=== PATIENT | female | born 1940 | race Hispanic/Latino ===

== ENCOUNTER 2017-08-10 18:48 | Inpatient (IN) | payer BC, MEDICARE ==
[2017-08-10 19:00] VITALS: BMI 34.0
--- NOTE | 2017-08-10 19:55 | ED PDOC ---
Arrival/HPI - General Chief Complaint: Weakness/Neurological Deficit Time Seen by Provider: 08/10/17 18:50 Historian: Patient - History of Present Illness Narrative History of Present Illness (Text): 08/10/17 18:50 77 year old female, whose past medical history includes breast CA, is brought in by [facility] and presents to the emergency department complaining of back pain. Patient reports she has spinal stenosis and was sent by PMD for back pain. Patient states she fell at home and had difficulty ambulating afterwards. Denies of any fever, urinary output changes, numbness, or any other complaints. PMD: Dr. Ray Grady Past Medical History - Provider Review Nursing Documentation Reviewed: Yes - Infectious Disease Hx of Infectious Diseases: None - Cardiac Hx Cardiac Disorders: No Hx Pacemaker: No - Pulmonary Hx Respiratory Disorders: No - Neurological Hx Neurological Disorder: No Hx Paralysis: No - HEENT Hx HEENT Disorder: Yes Other/Comment: glasses - Renal Hx Renal Disorder: No - Endocrine/Metabolic Hx Endocrine Disorders: No - Hematological/Oncological Hx Blood Disorders: Yes Hx Blood Transfusions: Yes (16 YRS AGO) Hx Blood Transfusion Reaction: No Hx Cancer: Yes (L breast removed with lymph) - Integumentary Hx Dermatological Disorder: No - Musculoskeletal/Rheumatological Hx Musculoskeletal Disorders: Yes (SPINAL STENOSIS) - Gastrointestinal Hx Gastrointestinal Disorders: No - Psychiatric Hx Emotional Abuse: No Hx Physical Abuse: No Hx Substance Use: No - Surgical History Hx Cholecystectomy: Yes Other/Comment: L breast removed with lymph - Anesthesia Hx Anesthesia: Yes Hx Anesthesia Reactions: Yes (PALPATATIONS ;HALLUCINATIONS;FEELINGS OF SEVERE ANGER) Hx Malignant Hyperthermia: No - Suicidal Assessment Feels Threatened In Home Enviroment: No Family/Social History - Physician Review Nursing Documentation Reviewed: Yes Family/Social History: No Known Family HX Smoking Status: Never Smoked Hx Alcohol Use: No Hx Substance Use: No Allergies/Home Meds Allergies/Adverse Reactions: Allergies codeine Allergy (Verified 08/10/17 19:06) ANGIOEDEMA Home Medications: Home Meds Medication Instructions Recorded Confirmed Omeprazole 20 mg PO QPM 07/28/15 08/10/17 Paroxetine HCl [Paroxetine] 20 mg PO HS 07/28/15 08/10/17 Raloxifene [Evista] 60 mg PO DAILY 07/28/15 08/10/17 amLODIPine [Norvasc] 5 mg PO QAM 07/28/15 08/10/17 Omeprazole Magnesium [Prilosec] 1 tab PO DAILY 08/10/17 08/10/17 Review of Systems - Physician Review All systems were reviewed & negative as marked: Yes - Review of Systems Constitutional: absent: Fevers Genitourinary Female: absent: Urine Output Changes Musculoskeletal: Back Pain (secondary to spinal stenosis) Neurological: absent: Other (no numbness) Physical Exam Vital Signs Reviewed: Yes Vital Signs Temp Pulse Resp BP Pulse Ox 08/10/17 20:16 85 20 118/70 97 08/10/17 19:03 98.6 F 90 20 181/63 H 96 Temperature: Afebrile Blood Pressure: Hypertensive Pulse: Regular Respiratory Rate: Normal Appearance: Positive for: Well-Appearing Pain Distress: None Mental Status: Positive for: Alert and Oriented X 3 - Systems Exam Head: Present: Atraumatic, Normocephalic Pupils: Present: PERRL Extroacular Muscles: Present: EOMI Conjunctiva: Present: Normal Mouth: Present: Moist Mucous Membranes Neck: Present: Normal Range of Motion Respiratory/Chest: Present: Clear to Auscultation, Good Air Exchange. No: Respiratory Distress, Accessory Muscle Use Cardiovascular: Present: Regular Rate and Rhythm, Normal S1, S2. No: Murmurs Abdomen: Present: Normal Bowel Sounds. No: Tenderness, Distention, Peritoneal Signs Back: Present: Paraspinal Tenderness (lumbar paraspinal tenderness). No: Midline Tenderness Upper Extremity: Present: Normal Inspection. No: Cyanosis, Edema Lower Extremity: Present: Normal Inspection. No: Edema Neurological: Present: GCS=15, CN II-XII Intact, Speech Normal Skin: Present: Warm, Dry, Normal Color. No: Rashes Psychiatric: Present: Alert, Oriented x 3, Normal Insight, Normal Concentration Medical Decision Making ED Course and Treatment: 08/10/17 18:55 Impression: 77 year old female with back pain secondary to spinal stenosis. Physical exam shows lumbar paraspinal tenderness, no midline tenderness. Plan: -- Lumbar Spinal MRI -- Labs -- Urinalysis -- Toradol -- Reassess and disposition Progress Notes: 08/10/2017 20:59 Limbar Spinal MRI FINDINGS: Artifacts: Motion artifact limits this study. Vertebrae: A transitional vertebral body is identified at the lumbosacral junction. There is a transitional L5 vertebral body, when correlated with the previous CT. There is grade I anterolisthesis of L4 on L5. The lumbar vertebral bodies are normal in height, without abnormal subluxation. Marrow: T1 hyperintense hemangiomas are identified within the T12 and L1 vertebral bodies. Spinal cord: The distal end of the conus medullaris ends at T12-L1, normal in position. Soft tissues: There is nonspecific soft tissue swelling posterior to the lower thoracic and lumbar spine. Kidneys and ureters: A few right renal cysts are identified. One of these cysts measures 2.0 x 1.6 cm. DISCS/SPINAL CANAL/NEURAL FORAMINA: Degenerative disc disease is noted from L1- 2 through L4-5, as well as additional visualized lower thoracic levels, with a decrease in the T2 signal intensity of the discs as well as disc bulge/osteophyte complexes. T11-T12: There is mild disc bulging at T11-12, without thecal sac compression. L1-L2: There is a broad-based disc bulge/protrusion with minimal to mild narrowing of the thecal sac. Mild right neural foraminal narrowing is identified. There is bilateral facet arthropathy. L2-L3: There is a broad-based disc bulge with mild narrowing of the thecal sac. Mild bilateral neural foramina is identified. L3-L4: There is a broad-based disc bulge with mild narrowing of the thecal sac. There is bilateral facet arthropathy with hypertrophy of the ligamentum flavum. Mild bilateral neural foraminal narrowing is identified. L4-L5: There is bilateral facet arthropathy. Mild narrowing of the thecal sac is identified. The neural foramina are patent bilaterally. L5-S1: There is bilateral facet arthropathy. There is no significant narrowing of the thecal sac or neural foramina. IMPRESSION: 1. A transitional vertebral body is identified at the lumbosacral junction. There is a transitional L5 vertebral body, when correlated with the previous CT. 2. There is grade I anterolisthesis of L4 on L5. 3. Degenerative changes are noted from L1-2 through L4-5, as well as additional visualized lower thoracic levels, as described above. 4. L1-2, there is a broad-based disc bulge/protrusion with minimal to mild narrowing of the thecal sac. 5. Mild narrowing of the thecal sac is identified from L2-3 through L4-5. 6. Neural foraminal narrowing is visualized from L1-2 through L3-4, as detailed above. 7. T1 hyperintense hemangiomas are identified within the T12 and L1 vertebral bodies. 8. Additional findings described above. Dictator: Lazaro Brown MD - Lab Interpretations Lab Results: 08/10/17 20:00 08/10/17 20:00 Lab Results 08/10/17 20:00: Sodium 141, Potassium 3.2 L, Chloride 101, Carbon Dioxide 31, Anion Gap 12, BUN 15, Creatinine 0.7, Est GFR ( Amer) > 60, Est GFR (Non- Af Amer) > 60, Random Glucose 106, Calcium 8.9, Total Bilirubin 0.3, AST 31, ALT 27, Alkaline Phosphatase 87, Total Protein 6.7, Albumin 3.4, Globulin 3.2, Albumin/Globulin Ratio 1.1 08/10/17 20:00: PT 11.0, INR 1.02, APTT 26.9 08/10/17 20:00: WBC 7.2, RBC 3.86, Hgb 9.9 L, Hct 32.1 L, MCV 83.2, MCH 25.6, MCHC 30.8 L, RDW 15.0 H, Plt Count 345, MPV 8.8, Gran % 73.8 H, Lymph % (Auto) 14.0 L, Chaves % (Auto) 11.2 H, Eos % (Auto) 1.0 L, Baso % (Auto) 0.0, Gran # 5.34 , Lymph # 1.0 L, Chaves # 0.8 H, Eos # 0.1, Baso # 0.00 I have reviewed the lab results: Yes - RAD Interpretation Radiology Orders: 08/10/17 18:53 SPINAL CANAL LUMBAR W/O CONT [MRI] Stat - Medication Orders Current Medication Orders: Acetaminophen (Tylenol 325mg Tab) 650 mg PO Q6H PRN PRN Reason: Fever >100.4 F Amlodipine Besylate (Norvasc) 5 mg PO DAILY NATHEN Aspirin (Ecotrin) 81 mg PO DAILY NATHEN Gabapentin (Neurontin) 100 mg PO TID NATHEN PRN Reason: Protocol Ibuprofen (Motrin Tab) 400 mg PO BID NATHEN Pantoprazole Sodium (Protonix Ec Tab) 40 mg PO ACB NATHEN Paroxetine HCl (Paxil) 10 mg PO DAILY NATHEN Prednisone (Prednisone Tab) 10 mg PO TID NATHEN Stop: 08/13/17 23:00 Tramadol HCl (Ultram) 50 mg PO TID PRN PRN Reason: Pain, moderate (4-7) Discontinued Medications Acetaminophen (Tylenol 325mg Tab) 650 mg PO Q6H PRN PRN Reason: Fever >100.5 F Ketorolac Tromethamine (Toradol) 30 mg IVP STAT STA Stop: 08/10/17 18:58 Last Admin: 08/10/17 20:13 Dose: 30 mg MAR Pain Assessment Document 08/10/17 20:13 EKEOO (Rec: 08/10/17 20:13 EKEOO [id number]) Pain Reassessment Is this a pain reassessment? No Sleep Is patient sleeping during reassessment? No Presence of Pain Presence of Pain Yes Location Pain Location Body Site Knee Description Description Constant IVP Administration Document 08/10/17 20:13 EKEOO (Rec: 08/10/17 20:13 EKEOO [id number]) Charges for Administration # of IVP Administrations 1 Potassium Chloride (K-Dur 20 Meq Er Tab) 40 meq PO STAT STA Stop: 08/10/17 20:29 Last Admin: 08/11/17 00:08 Dose: 40 meq - Scribe Statement The provider has reviewed the documentation as recorded by the Beatris Henriquez Provider Scribe Attestation: All medical record entries made by the Scribe were at my direction and personally dictated by me. I have reviewed the chart and agree that the record accurately reflects my personal performance of the history, physical exam, medical decision making, and the department course for this patient. I have also personally directed, reviewed, and agree with the discharge instructions and disposition. Disposition/Present on Arrival - Present on Arrival Any Indicators Present on Arrival: No History of DVT/PE: No History of Uncontrolled Diabetes: No Urinary Catheter: No History of Decub. Ulcer: No History Surgical Site Infection Following: None - Disposition Have Diagnosis and Disposition been Completed?: Yes Diagnosis: Weakness Disposition: HOSPITALIZED Disposition Time: 07:00 Condition: STABLE
[2017-08-10 20:17] LABS: EOS # 0.1 (0.0-0.7); GRAN # 5.34 (1.4-6.5); GRAN % 73.8 % (50.0-68.0); HEMATOCRIT 32.1 % (36.0-48.0); MEAN CELL VOLUME 83.2 fl (80.0-105.0); MEAN CORPUSCULAR HEMOGLOBIN 25.6 pg (25.0-35.0); MEAN CORPUSCULAR HGB CONC 30.8 g/dl (31.0-37.0); MEAN PLATELET VOLUME 8.8 fl (7.0-11.0); MONO # 0.8 (0.1-0.6); MONO % 11.2 % (1.0-6.0); WHITE BLOOD COUNT 7.2 10^3/ul (4.5-11.0)
[2017-08-10 20:26] LABS: ALB/GLOB RATIO 1.1 (1.1-1.8); ALKALINE PHOSPHATASE 87 U/L (38-126); ALT/SGPT 27 U/L (7-56); AST/SGOT 31 U/L (14-36); BILIRUBIN,TOTAL 0.3 mg/dL (0.2-1.3); BLOOD UREA NITROGEN 15 mg/dL (7-21); CALCIUM 8.9 mg/dL (8.4-10.5); CARBON DIOXIDE 31 mmol/L (21-33); CHLORIDE 101 mmol/L (98-107); GFR AFRICAN-AMERICAN > 60; GLUCOSE,RANDOM 106 mg/dL (70-110); POTASSIUM 3.2 mmol/L (3.6-5.0); SODIUM 141 mmol/L (132-148); TOTAL PROTEIN 6.7 g/dL (5.8-8.3)
[2017-08-10] MEDS ORDERED: Potassium Chloride 20 mEq ER Tab PO STA (20:28)
[2017-08-10 20:37] LABS: INR 1.02 (0.93-1.08); PARTIAL THROMBOPLASTIN TIME 26.9 Seconds (23.7-30.8)
--- NOTE | 2017-08-10 20:59 | MRI ---
EXAM: MR Lumbar Spine Without Intravenous Contrast EXAM DATE/TIME: 08/10/2017 6:53 PM CLINICAL HISTORY: The patient age is 77 years old and is female; Pain; Other: Bilateral leg pain, but more on the left; Additional info: Low back pain Facility exam id and description: Mri spls spinal canal lumbar w/o cont TECHNIQUE: Magnetic resonance images of the lumbar spine without intravenous contrast in multiple planes. COMPARISON: No relevant prior studies available. FINDINGS: Artifacts: Motion artifact limits this study. Vertebrae: A transitional vertebral body is identified at the lumbosacral junction. There is a transitional L5 vertebral body, when correlated with the previous CT. There is grade I anterolisthesis of L4 on L5. The lumbar vertebral bodies are normal in height, without abnormal subluxation. Marrow: T1 hyperintense hemangiomas are identified within the T12 and L1 vertebral bodies. Spinal cord: The distal end of the conus medullaris ends at T12-L1, normal in position. Soft tissues: There is nonspecific soft tissue swelling posterior to the lower thoracic and lumbar spine. Kidneys and ureters: A few right renal cysts are identified. One of these cysts measures 2.0 x 1.6 cm. DISCS/SPINAL CANAL/NEURAL FORAMINA: Degenerative disc disease is noted from L1-2 through L4-5, as well as additional visualized lower thoracic levels, with a decrease in the T2 signal intensity of the discs as well as disc bulge/osteophyte complexes. T11-T12: There is mild disc bulging at T11-12, without thecal sac compression. L1-L2: There is a broad-based disc bulge/protrusion with minimal to mild narrowing of the thecal sac. Mild right neural foraminal narrowing is identified. There is bilateral facet arthropathy. L2-L3: There is a broad-based disc bulge with mild narrowing of the thecal sac. Mild bilateral neural foramina is identified. L3-L4: There is a broad-based disc bulge with mild narrowing of the thecal sac. There is bilateral facet arthropathy with hypertrophy of the ligamentum flavum. Mild bilateral neural foraminal narrowing is identified. L4-L5: There is bilateral facet arthropathy. Mild narrowing of the thecal sac is identified. The neural foramina are patent bilaterally. L5-S1: There is bilateral facet arthropathy. There is no significant narrowing of the thecal sac or neural foramina. IMPRESSION: 1. A transitional vertebral body is identified at the lumbosacral junction. There is a transitional L5 vertebral body, when correlated with the previous CT. 2. There is grade I anterolisthesis of L4 on L5. 3. Degenerative changes are noted from L1-2 through L4-5, as well as additional visualized lower thoracic levels, as described above. 4. L1-2, there is a broad-based disc bulge/protrusion with minimal to mild narrowing of the thecal sac. 5. Mild narrowing of the thecal sac is identified from L2-3 through L4-5. 6. Neural foraminal narrowing is visualized from L1-2 through L3-4, as detailed above. 7. T1 hyperintense hemangiomas are identified within the T12 and L1 vertebral bodies. 8. Additional findings described above.
[2017-08-11 02:10] LABS: URINE BILIRUBIN NEGATIVE (NEGATIVE); URINE BLOOD MODERATE (NEGATIVE); URINE GLUCOSE (UA) NEGATIVE (NEGATIVE); URINE KETONE NEGATIVE (NEGATIVE); URINE LEUKOCYTE ESTERASE LARGE Leu/uL (NEGATIVE); URINE PROTEIN TRACE mg/dL (<30 mg/dL); URINE UROBILINOGEN 0.2 E.U./dL (<1 E.U./dL)
[2017-08-11 02:13] LABS: URINE APPEARANCE CLOUDY (CLEAR); URINE COLOR YELLOW (YELLOW)
[2017-08-11 02:30] LABS: URINE BACTERIA MANY (NEG); URINE WBC 15 - 20 /hpf (0-6)
--- NOTE | 2017-08-11 10:27 | CP.PCM.CON ---
<Merari Rodriguez - Last Filed: 08/11/17 10:34> History of Present Illness - History of Present Illness History of Present Illness: Neurology Consult Note for Radha Adan PGY2 Reason for consult: Back pain This is a 77Y F with PMH spinal stenosis, lumbar disc hernation, Breast cancer s /p L mastectomy, HTN, GERD, Depression who came to ED for increasing back pain for the past couple weeks. She has been having trouble getting out of the chair. When she gets out of the chair she has pain in her L leg from below her knee to her foot. She denies the feeling of numbness/tingling, but has been feeling weak and has not gotten up much recently. She denies having any trauma, numbness/tingling, loss of bowel/bladder incontinence, fever/chills, CP, SOB, n/ v/d. She only uses Advil for the pain without any relief. MRI of the lumbar spine was done which does show L5 disc herniation and spinal stenosis in L1-L4 but no acute changes. PMH: spinal stenosis, lumbar disc hernation, Breast cancer s/p L mastectomy, HTN , GERD, Depression PSH: L mastectomy, cholecystectomy Home meds: as per MAR All: Codeine (makes her altered) SH: Denies EtOH, drug or tobacco use Review of Systems - Review of Systems All systems: reviewed and no additional remarkable complaints except Review of Systems: + back pain, leg pain, weakness Past Patient History - Infectious Disease Hx of Infectious Diseases: None - Past Social History Smoking Status: Never Smoked Alcohol: None Drugs: Denies - CARDIAC Hx Cardiac Disorders: No Hx Hypertension: Yes Hx Pacemaker: No - PULMONARY Hx Respiratory Disorders: No - NEUROLOGICAL Hx Neurological Disorder: No - HEENT Hx HEENT Problems: Yes Other/Comment: glasses - RENAL Hx Chronic Kidney Disease: No - ENDOCRINE/METABOLIC Hx Endocrine Disorders: No - HEMATOLOGICAL/ONCOLOGICAL Hx Blood Disorders: Yes Hx Cancer: Yes (L breast removed with lymph) - INTEGUMENTARY Hx Dermatological Problems: No - MUSCULOSKELETAL/RHEUMATOLOGICAL Hx Musculoskeletal Disorders: Yes (SPINAL STENOSIS) Hx Arthritis: Yes Hx Falls: Yes - GASTROINTESTINAL Hx Gastrointestinal Disorders: No - PSYCHIATRIC Hx Anxiety: Yes Hx Depression: Yes Hx Emotional Abuse: No Hx Physical Abuse: No - SURGICAL HISTORY Hx Cholecystectomy: Yes Other/Comment: L breast removed with lymph with reconstruction - ANESTHESIA Hx Anesthesia: Yes Hx Anesthesia Reactions: Yes (PALPATATIONS ;HALLUCINATIONS;FEELINGS OF SEVERE ANGER) Hx Malignant Hyperthermia: No Meds Allergies/Adverse Reactions: Allergies Allergy/AdvReac Type Severity Reaction Status Date / Time codeine Allergy ANGIOEDEMA Verified 08/10/17 19:06 - Medications Medications: Current Medications Acetaminophen (Tylenol 325mg Tab) 650 mg PO Q6H PRN PRN Reason: Fever >100.5 F Gabapentin (Neurontin) 100 mg PO TID NATHEN PRN Reason: Protocol Physical Exam - Constitutional Appears: No Acute Distress - Head Exam Head Exam: ATRAUMATIC, NORMAL INSPECTION, NORMOCEPHALIC - Eye Exam Eye Exam: Normal appearance, PERRL Pupil Exam: NORMAL ACCOMODATION, PERRL - ENT Exam ENT Exam: Mucous Membranes Moist - Respiratory Exam Respiratory Exam: Clear to Auscultation Bilateral, NORMAL BREATHING PATTERN. absent: Rales, Rhonchi, Wheezes - Cardiovascular Exam Cardiovascular Exam: REGULAR RHYTHM, +S1, +S2. absent: Gallop, Rubs, Systolic Murmur - GI/Abdominal Exam GI & Abdominal Exam: Normal Bowel Sounds, Soft. absent: Mass, Rebound, Rigid, Tenderness - Extremities Exam Extremities exam: Positive for: normal inspection. Negative for: calf tenderness, pedal edema - Neurological Exam Neurological exam: Alert, CN II-XII Intact, Oriented x3 Additional comments: No motor/sensory deficit noted - Psychiatric Exam Psychiatric exam: Normal Affect, Normal Mood - Skin Skin Exam: Dry, Normal Color, Warm Results - Vital Signs Recent Vital Signs: Last Vital Signs Temp 97.6 F 08/11/17 07:30 Pulse 85 08/11/17 07:30 Resp 20 08/11/17 07:30 BP 151/77 H 08/11/17 07:30 Pulse Ox 97 08/11/17 07:30 - Labs Result Diagrams: 08/10/17 20:00 08/10/17 20:00 Labs: Laboratory Results - last 24 hr 08/11/17 01:50 Urine Color Yellow Urine Appearance Cloudy Urine pH 6.0 Ur Specific Otis 1.015 Urine Protein Trace H Urine Glucose (UA) Negative Urine Ketones Negative Urine Blood Moderate H Urine Nitrate Positive H Urine Bilirubin Negative Urine Urobilinogen 0.2 Ur Leukocyte Esterase Large H Urine RBC 1 - 3 Urine WBC 15 - 20 Ur Epithelial Cells 1 - 3 Urine Bacteria Many Assessment & Plan - Assessment and Plan (Free Text) Assessment: This is a 77Y F with PMH spinal stenosis, lumbar disc hernation, Breast cancer s /p L mastectomy, HTN, GERD, Depression who came to ED for increasing back pain for the past couple weeks. MRI of the lumbar spine was done which does show L5 disc herniation and spinal stenosis in L1-L4 but no acute changes. Back pain is chronic in nature without radiculopathy. Plan: - Start Neurontin 100mg TID - Will obtain venous duplex U/S to rule out DVT from inactivity and L lower leg pain - Upon d/c patient can be d/c with medrol dose pack - Physical therapy - Recommend patient follow up with Dr. Phelps as outpatient for EMG studies No further neurological workup indicated at this time. Thank you for this consultation. Will sign off. Please re-consult if needed. Case seen, discussed and reviewed with attending, Dr. Phelps. Radha Rodriguez PGY2 - Date & Time Date: 08/11/17 Time: 10:33 <Marcel Phelps - Last Filed: 08/11/17 13:14> Meds - Medications Medications: Current Medications Acetaminophen (Tylenol 325mg Tab) 650 mg PO Q6H PRN PRN Reason: Fever >100.4 F Amlodipine Besylate (Norvasc) 5 mg PO DAILY [facility] Last Admin: 08/11/17 11:32 Dose: 5 mg Aspirin (Ecotrin) 81 mg PO DAILY [facility] Last Admin: 08/11/17 11:43 Dose: 81 mg Gabapentin (Neurontin) 100 mg PO TID [facility] PRN Reason: Protocol Last Admin: 08/11/17 11:38 Dose: 100 mg Ibuprofen (Motrin Tab) 400 mg PO BID [facility] Last Admin: 08/11/17 11:33 Dose: 400 mg Pantoprazole Sodium (Protonix Ec Tab) 40 mg PO ACB [facility] Last Admin: 08/11/17 11:38 Dose: 40 mg Paroxetine HCl (Paxil) 10 mg PO DAILY [facility] Last Admin: 08/11/17 11:33 Dose: 10 mg Prednisone (Prednisone Tab) 10 mg PO TID [facility] Stop: 08/13/17 23:00 Tramadol HCl (Ultram) 50 mg PO TID PRN PRN Reason: Pain, moderate (4-7) Results - Vital Signs Recent Vital Signs: Last Vital Signs Temp 97.6 F 08/11/17 07:30 Pulse 85 08/11/17 11:32 Resp 20 08/11/17 07:30 BP 155/77 H 08/11/17 11:32 Pulse Ox 97 08/11/17 07:30 - Labs Result Diagrams: 08/10/17 20:00 08/10/17 20:00 Labs: Laboratory Results - last 24 hr 08/11/17 01:50 Urine Color Yellow Urine Appearance Cloudy Urine pH 6.0 Ur Specific Otis 1.015 Urine Protein Trace H Urine Glucose (UA) Negative Urine Ketones Negative Urine Blood Moderate H Urine Nitrate Positive H Urine Bilirubin Negative Urine Urobilinogen 0.2 Ur Leukocyte Esterase Large H Urine RBC 1 - 3 Urine WBC 15 - 20 Ur Epithelial Cells 1 - 3 Urine Bacteria Many Attending/Attestation - Attestation I have personally seen and examined this patient.: Yes I have fully participated in the care of the patient.: Yes I have reviewed all pertinent clinical information: Yes
[2017-08-11] MEDS: Pantoprazole 40 mg EC Tab PO SCH (11:38)
[2017-08-11] MEDS: Nystatin-Triamcinolone Ointment(30 gm) TOP SCH (17:58)
--- NOTE | 2017-08-11 20:02 | US ---
HISTORY: Leg pain and swelling. Evaluate for DVT PHYSICIAN(S): Triston Washington MD. TECHNIQUE: Duplex sonography and color-flow Doppler with graded compression were used to evaluate the deep venous systems of both lower extremities. FINDINGS: The visualized deep venous systems of both lower extremities are sonographically normal and compressible. Normal wave forms and augmentation are seen. There is no sonographic evidence for deep venous thrombosis in the visualized segments of both lower extremities. IMPRESSION: No sonographic evidence for deep venous thrombosis in the visualized segments of both lower extremities.
[2017-08-12] MEDS: Pantoprazole 40 mg EC Tab PO SCH (10:05)
[2017-08-12] MEDS: Nystatin-Triamcinolone Ointment(30 gm) TOP SCH ×2 (10:33→17:30)
--- NOTE | 2017-08-12 20:58 | CON ---
DATE: 08/12/2017 LOCATION: A 77-year-old female, in room 562, bed 2. HISTORY OF PRESENT ILLNESS: The patient was seen for lower leg sciatica from spinal stenosis, accompanied by weakness of her quadriceps. She had an MRI showing severe spinal stenosis of lumbar spine, basically throughout its entirely, especially at L4-L5 and L1 and L2 and some at T12 and L1 causing weakness of her lower extremities and I believe neurologist will put her on steroids, as she is not a surgical candidate, she does not want it and she is going to hold off on getting an epidural, which could help her but the p.o. steroids help her to be good. I am going to just start physical therapy to strengthen the muscles of her lower extremities where she can get up from her chair better and tell her not to do any heavy lifting, and may be exercise bicycle to just keep her muscle strong and walk with a cane or walker. FINAL DIAGNOSES: Lumbar spinal stenosis causing weakness of the lower extremities. We will try to strengthen the muscles with therapy and when she goes home she has to continue the therapy to strengthen her muscles. Vasquez Younger DO
[2017-08-13] MEDS: Pantoprazole 40 mg EC Tab PO SCH (06:44)
[2017-08-13] MEDS: Nystatin-Triamcinolone Ointment(30 gm) TOP SCH ×2 (09:26→18:06)
[2017-08-13] MEDS: Potassium Chloride 10 mEq ER Tab PO SCH (12:16)
[2017-08-13 15:21] LABS: URINE BILIRUBIN NEGATIVE (NEGATIVE); URINE BLOOD MODERATE (NEGATIVE); URINE GLUCOSE (UA) NEGATIVE (NEGATIVE); URINE KETONE TRACE mg/dL (NEGATIVE); URINE LEUKOCYTE ESTERASE LARGE Leu/uL (NEGATIVE); URINE PROTEIN TRACE mg/dL (<30 mg/dL); URINE UROBILINOGEN 0.2 E.U./dL (<1 E.U./dL)
[2017-08-13 15:22] LABS: URINE APPEARANCE CLOUDY (CLEAR); URINE COLOR YELLOW (YELLOW)
[2017-08-13 15:26] LABS: URINE BACTERIA MANY (NEG); URINE WBC TNTC /hpf (0-6)
--- NOTE | 2017-08-13 16:53 | HP ---
CHIEF COMPLAINT: Inability to walk, stand; three falls at home in the past 3 days. HISTORY OF PRESENT ILLNESS: This is a 77-year-old woman I have known for many years who called me on evening saying that she cannot walk. She fell multiple times at home requiring ambulance to come and assist her in getting up. Today, unable to stand, unable to walk and enter her 3rd floor. She called me with concern. Because of her history of breast cancer and report of inability to move her legs and support her weight, I suggested that she comes to the emergency room fearing a cord compression and/or metastatic disease. She was seen in the emergency room. MRI was done. There was no evidence of acute cord compression or metastatic disease, but she was unable to walk and therefore admitted. PAST MEDICAL HISTORY: Significant for hypertension since 04/1995. Past history is negative for diabetes, cholesterol, tuberculosis, asthma, seizure, gout, COPD, CVA, TIA, [place], or coronary artery disease. She has chronic low back pain and herniated lumbar disks and spinal stenosis. She has severe arthritis of the lumber spine as well as the knees, shoulders, and elbows. PAST SURGICAL HISTORY: Significant for left breast cancer with mastectomy and TRAM flap reconstruction in 1996. 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 ALLERGIES: SHE STATES SHE is ALLERGIC TO CODEINE AND MORPHINE IT CAUSES ALTERED MENTAL STATUS. SOCIAL HISTORY: She does not smoke and she does not drink alcohol. Does not drink coffee. She does drink green tea. She had colonoscopy in 2003, 2005, 2006, 2008, 2011 and 2014. She had upper endoscopy in 2008, 2009, 2014. She goes for yearly mammography with Dr. Ragland. She had a stress test in 1996. She does not get the flu vaccine and does not want it. She does not get the Pneumovax vaccines and does not want it. FAMILY HISTORY: Her mother, Jordyn Rider at age 86. Her father in 196 at the age of 52 from coronary artery disease. She has one sister, Sabrina Ricardo who is alive and well. She is . Her underwent recent ascending aortic aneurysm and aortic wall replacement surgery. She has 2 daughters. MEDICATIONS: As listed from the office include Evista 60 mg daily, Paxil 20 mg daily, omeprazole 20 mg daily, amlodipine 5 mg daily, calcium and vitamin D supplements. PHYSICAL EXAMINATION: GENERAL: The patient was seen this Monday morning in room 562, bed 2 with her at the bedside. She is awake, alert, clear and appropriate. HEENT: Head and neck are unremarkable. Conjunctivae are pink. Mucous membranes are moist. NECK: Supple without masses. LUNGS: Clear to auscultation and percussion. HEART: Regular, not tachycardic. ABDOMEN: Moderately overweight. No palpable masses. Status post TRAM flap surgery and mastectomy. EXTREMITIES: No significant edema, trace at best related to obesity. Gait: The patient is unable to stand and bear weight securely at this time. IMPRESSION: 1. Multiple falls at home, spinal stenosis, osteoarthritis of the lumbar spine. 2. Status post breast cancer with mastectomy and TRAM flap procedure 20 years ago. 3. Hypertension. 4. Chronic low back pain. 5. History of anxiety/depression/stress. PLAN: The patient was admitted to medical floor. Neurology and orthopedic consultations had been called. Physical therapy evaluation and treatment has been requested. Analgesics will be a difficult issue as our options are limited due to the patient's sensitivity to codeine and morphine. We will use regularly scheduled NSAIDs as well as steroids, I will opt for oral steroids at this time, if Neurology wishes to change, then that is fine with me. We will add gabapentin and follow closely. The patient will probably need more physical therapy and off of the options of our transitional care unit. Ray Grady MD MTDD
--- NOTE | 2017-08-13 20:17 | PN ---
DATE: 08/13/2017 SUBJECTIVE: Patient was seen this Monday morning in room 575, bed 2 with her sitting at the bedside. She is out of bed in a chair. Awake, alert, and clear. Feeling much better with steroids, analgesics, and Neurontin. TCU evaluation has been requested and was done last night. Patient may be ready for transfer as early as today. PHYSICAL EXAMINATION: GENERAL: She appears to be in good spirits. Pain has subsided quite a bit. She was able to stand and transfer into a chair, although her gait and walking is guarded at best. Need to follow the advice and from physical therapist regarding her ability to ambulate safely. LUNGS: Good aeration, right and left. HEART: Regular, not tachycardiac. ABDOMEN: Overweight. EXTREMITIES: Showed no edema. ASSESSMENT: 1. Spinal stenosis. 2. Osteoarthritis of the lumbar spine. 3. Hypertension. 4. Status post breast cancer. 5. Obesity. PLAN: Continue physical therapy, analgesics, and anti-inflammatories as ordered and transfer to transitional care unit when bed available. Ray Grady MD MTDD
--- NOTE | 2017-08-13 21:06 | PN ---
DATE: 08/12/2017 SUBJECTIVE: The patient was seen this Monday morning in room 562, bed 2 with her at the door. She looks much improved. Her pain has subsided with prednisone and analgesics and Neurontin as prescribed. Neurology note is appreciated. Orthopedic involvement and treatment is greatly appreciated as the patient seems to be reporting quite a bit of improvement in her left knee pain, thanks to the intervention of Dr. Vasquez Younger. PHYSICAL EXAMINATION: The patient is comfortable. I went through some gentle back stretching and range of motion exercises with her. We will continue her current level of medications. I also spoke to her about treatment options ranging from Transitional Care Unit here at [facility] to home with physical therapy at home. Unfortunately, she is not able to ambulate. Physical therapy is limited because of her inability to stand and transfer and balance safely. She is a good candidate for Transitional Care Unit and hopefully will be headed over there as early as tomorrow for additional PT. We will continue current level of care and medications. Ray Grady MD
[2017-08-14] MEDS: Pantoprazole 40 mg EC Tab PO SCH (06:51)
[2017-08-14 07:18] LABS: BASO # 0.01 K/mm3 (0.0-2.0); BASO % 0.1 % (0.0-3.0); EOS % 0.4 % (1.5-5.0); GRAN # 8.15 (1.4-6.5); GRAN % 73.4 % (50.0-68.0); HEMATOCRIT 36.5 % (36.0-48.0); MEAN CELL VOLUME 83.9 fl (80.0-105.0); MEAN CORPUSCULAR HEMOGLOBIN 25.5 pg (25.0-35.0); MEAN CORPUSCULAR HGB CONC 30.4 g/dl (31.0-37.0); MONO # 0.9 (0.1-0.6); MONO % 8.1 % (1.0-6.0); RED CELL DISTRIBUTION WIDTH 14.9 % (11.5-14.5); RETIC% 2.74 % (0.5-1.5); WHITE BLOOD COUNT 11.1 10^3/ul (4.5-11.0)
[2017-08-14 07:42] LABS: BLOOD UREA NITROGEN 17 mg/dL (7-21); CALCIUM 8.9 mg/dL (8.4-10.5); CARBON DIOXIDE 29 mmol/L (21-33); CHLORIDE 105 mmol/L (98-107); GFR AFRICAN-AMERICAN > 60; GLUCOSE,RANDOM 111 mg/dL (70-110); MAGNESIUM 1.8 mg/dL (1.7-2.2); SODIUM 142 mmol/L (132-148)
[2017-08-14 07:50] VITALS: PULSE 61; RESP 24; TEMP 98.6; O2SAT 99
[2017-08-14] MEDS: Potassium Chloride 10 mEq ER Tab PO SCH (09:46)
[2017-08-14] MEDS: Nystatin-Triamcinolone Ointment(30 gm) TOP SCH (09:48)
[2017-08-14 09:49] VITALS: BP 143/83
--- NOTE | 2017-08-14 10:50 | RAD ---
PROCEDURE: Knees bilateral standing AP HISTORY: eval COMPARISON: 04/13/2015 TECHNIQUE: AP weight-bearing FINDINGS: There is moderate joint space narrowing in the medial compartment of both knees. This has shown minimal progression IMPRESSION: There is moderate joint space narrowing in the medial compartment of both knees. This has shown minimal progression
[2017-08-14] MEDS ORDERED: Bupivacaine 0.5% Inj(30mL) IJ ONE (14:58)
[2017-08-14] MEDS ORDERED: MethylPREDNISolone Depo 40 mg/ml Inj IM ONE (14:58)
--- NOTE | 2017-08-14 16:02 | PN ---
DATE: 08/14/2017 LOCATION: Room 575, bed 2. SUBJECTIVE: The patient had her bilateral knee standing x-rays showing that she does have significant osteoarthritis worse in the left knee than the right, mainly the medial joint space with narrowing of the cartilage. She is a candidate for Euflexxa or Hyalgan injection as an outpatient, but in the hospital, I will give her a Depo-Medrol, Marcaine to make the feeling of pain much less, and when she gets out of the hospital, seen in the office for Hyalgan injection, I use Euflexxa. This should help her immensely. FINAL DIAGNOSIS: Osteoarthritis with decreased joint space in the medial side, left worse than the right. We will plan to give a Depo-Medrol and Marcaine injection in the morning. Vasquez Younger DO
== END 2017-08-14 16:10 | DRG 552 ==
LOC: ED 18:48 → ERH 21:47 → 5RNO 08-11 00:58 → 5RSO 08-12 17:46 → OBSVTOIN 08-13 11:30
PROVIDERS: ADMIT Internal Medicine; ATTEND Internal Medicine
PROC: 3E0U3GC Introduction of Other Therapeutic Substance into Joints, Percutaneous Approach (ICD-10-PCS; principal; 2017-08-14)
DX: M43.16 Spondylolisthesis, lumbar region (principal); N28.1 Cyst of kidney, acquired; I10 Essential (primary) hypertension; W19.XXXA Unspecified fall, initial encounter; D18.09 Hemangioma of other sites; E66.9 Obesity, unspecified; F32.89 Other specified depressive episodes; G89.29 Other chronic pain; K21.9 Gastro-esophageal reflux disease without esophagitis; M17.0 Bilateral primary osteoarthritis of knee; M19.012 Primary osteoarthritis, left shoulder; M19.011 Primary osteoarthritis, right shoulder; M19.022 Primary osteoarthritis, left elbow; M19.021 Primary osteoarthritis, right elbow; M47.816 Spondylosis without myelopathy or radiculopathy, lumbar region; M48.061 Spinal stenosis, lumbar region without neurogenic claudication; M51.26 Other intervertebral disc displacement, lumbar region; M54.30 Sciatica, unspecified side; R29.6 Repeated falls; Y92.009 Unspecified place in unspecified non-institutional (private) residence as the place of occurrence of the external cause; Z79.899 Other long term (current) drug therapy; Z82.49 Family history of ischemic heart disease and other diseases of the circulatory system; Z85.3 Personal history of malignant neoplasm of breast; Z85.828 Personal history of other malignant neoplasm of skin; Z90.12 Acquired absence of left breast and nipple; Z90.49 Acquired absence of other specified parts of digestive tract; Z90.710 Acquired absence of both cervix and uterus; Z88.5 Allergy status to narcotic agent; R40.2411 Glasgow coma scale score 13-15, in the field [EMT or ambulance]; M51.36 Other intervertebral disc degeneration, lumbar region; F41.9 Anxiety disorder, unspecified

== ENCOUNTER 2017-08-14 15:47 | Inpatient (IN) | payer BC, OTHER ==
[2017-08-14 16:23] VITALS: BMI 33.8
[2017-08-14] MEDS ORDERED: Pneumococcal 23-Valent Vaccine IM ONE (17:06)
[2017-08-14] MEDS: Nystatin-Triamcinolone Ointment(30 gm) TOP SCH (18:14)
[2017-08-15] MEDS: Pantoprazole 40 mg EC Tab PO SCH (07:59)
[2017-08-15] MEDS: Potassium Chloride 10 mEq ER Tab PO SCH (07:59)
--- NOTE | 2017-08-15 09:02 | CP.PCM.CON ---
<Merari Rodriguez - Last Filed: 08/15/17 10:04> History of Present Illness - History of Present Illness History of Present Illness: Neurology Consult Note for Radha Adan PGY2 Reason for consult: Back pain This is a 77Y F with PMH lumbar disc herniation, spinal stenosis, breast cancer s/p mastectomy, HTN, Gerd, depression who was admitted for back pain x 2 weeks. She had MRI of lumbar spine which showed L5 disc herniation and spinal stenosis in L1-L4 but no acute changes. During her hospital stay, she was placed on Gabapentin for her pain. She reports that is has not helped with her pain. She also had knee pain bilaterally. Knee XRs showed osteoarthritis L worse than R. She was seen by ortho who gave her a steroid injection in her L knee. Patient was then transferred to TCU for further rehabilitation. This am she feels well. She denies CP, SOB, n/v/d, numbness/tingling, fever or chills. PMH: spinal stenosis, lumbar disc hernation, Breast cancer s/p L mastectomy, HTN , GERD, Depression PSH: L mastectomy, cholecystectomy Home meds: as per MAR All: Codeine (makes her altered) SH: Denies EtOH, drug or tobacco use Review of Systems - Review of Systems All systems: reviewed and no additional remarkable complaints except Review of Systems: + back pain Past Patient History - Infectious Disease Hx of Infectious Diseases: None - Past Social History Smoking Status: Never Smoked - CARDIAC Hx Hypertension: Yes - PULMONARY Hx Respiratory Disorders: No - NEUROLOGICAL Hx Neurological Disorder: No Hx Paralysis: No - HEENT Hx HEENT Problems: Yes Other/Comment: glasses - RENAL Hx Chronic Kidney Disease: No - ENDOCRINE/METABOLIC Hx Endocrine Disorders: No - HEMATOLOGICAL/ONCOLOGICAL Hx Blood Disorders: Yes Hx Blood Transfusions: Yes (16 YRS AGO) Hx Blood Transfusion Reaction: No Hx Cancer: Yes (L breast removed with lymph) - INTEGUMENTARY Hx Dermatological Problems: No - MUSCULOSKELETAL/RHEUMATOLOGICAL Hx Falls: (3 recent in one day) - GASTROINTESTINAL Hx Gastrointestinal Disorders: (hx gi bleed 2009) - GENITOURINARY/GYNECOLOGICAL Hx Reproductive Disorders: Yes (hx L breast ca with reconscruction) - PSYCHIATRIC Hx Emotional Abuse: No Hx Physical Abuse: No Hx Substance Use: No - SURGICAL HISTORY Hx Cholecystectomy: Yes Other/Comment: L breast removed with lymph - ANESTHESIA Hx Anesthesia: Yes Hx Anesthesia Reactions: Yes (PALPATATIONS ;HALLUCINATIONS;FEELINGS OF SEVERE ANGER) Hx Malignant Hyperthermia: No Meds Allergies/Adverse Reactions: Allergies Allergy/AdvReac Type Severity Reaction Status Date / Time codeine Allergy ANGIOEDEMA Verified 08/10/17 19:06 - Medications Medications: Current Medications Acetaminophen (Tylenol 325mg Tab) 650 mg PO Q6H PRN; Protocol PRN Reason: Fever >100.4 F Amlodipine Besylate (Norvasc) 5 mg PO DAILY NATHEN PRN Reason: Protocol Aspirin (Ecotrin) 81 mg PO 0800 NATHEN PRN Reason: Protocol Last Admin: 08/15/17 07:59 Dose: 81 mg Gabapentin (Neurontin) 100 mg PO TID NATHEN PRN Reason: Protocol Last Admin: 08/14/17 18:21 Dose: 100 mg Ibuprofen (Motrin Tab) 400 mg PO BID NATHEN PRN Reason: Protocol Last Admin: 08/14/17 18:17 Dose: 400 mg Nystatin/Triamcinolone Acetonide (Nystatin/Triamcinolone Ointment) 0 gm TOP BID NATHEN PRN Reason: Protocol Last Admin: 08/14/17 18:14 Dose: 1 appl Pantoprazole Sodium (Protonix Ec Tab) 40 mg PO ACB NATHEN PRN Reason: Protocol Last Admin: 08/15/17 07:59 Dose: 40 mg Paroxetine HCl (Paxil) 10 mg PO DAILY NATHEN PRN Reason: Protocol Potassium Chloride (Klor-Con 10) 10 meq PO BRK NATHEN PRN Reason: Protocol Last Admin: 08/15/17 07:59 Dose: 10 meq Tramadol HCl (Ultram) 50 mg PO TID PRN; Protocol PRN Reason: Pain, moderate (4-7) Physical Exam - Constitutional Appears: No Acute Distress - Head Exam Head Exam: ATRAUMATIC, NORMAL INSPECTION, NORMOCEPHALIC - Eye Exam Eye Exam: Normal appearance, PERRL Pupil Exam: NORMAL ACCOMODATION, PERRL - ENT Exam ENT Exam: Mucous Membranes Moist - Respiratory Exam Respiratory Exam: Clear to Auscultation Bilateral, NORMAL BREATHING PATTERN. absent: Rales, Rhonchi, Wheezes - Cardiovascular Exam Cardiovascular Exam: REGULAR RHYTHM, +S1, +S2. absent: Gallop, Rubs, Systolic Murmur - GI/Abdominal Exam GI & Abdominal Exam: Normal Bowel Sounds, Soft. absent: Rebound, Rigid, Tenderness - Extremities Exam Extremities exam: Positive for: normal inspection. Negative for: calf tenderness, pedal edema - Neurological Exam Neurological exam: Alert, CN II-XII Intact, Oriented x3 - Psychiatric Exam Psychiatric exam: Normal Affect, Normal Mood - Skin Skin Exam: Dry, Intact, Normal Color, Warm Results - Vital Signs Recent Vital Signs: Last Vital Signs Temp 98.7 F 08/15/17 06:00 Pulse 67 08/15/17 06:00 Resp 20 08/15/17 06:00 BP 140/73 08/15/17 06:00 Pulse Ox 98 08/14/17 16:00 Assessment & Plan - Assessment and Plan (Free Text) Assessment: This is a 77Y F with PMH spinal stenosis, lumbar disc hernation, Breast cancer s /p L mastectomy, HTN, GERD, Depression who came to ED for increasing back pain for the past couple weeks. MRI of the lumbar spine was done which does show L5 disc herniation and spinal stenosis in L1-L4 but no acute changes. Back pain is chronic in nature without radiculopathy. Patient has been evaluated by ortho and has now been transferred to TCU for further rehabilitation. Plan: - Will D/C neurontin and add Lyrica 50mg BID - Flexeril 10mg HS - Continue Physical therapy - Recommend outpatient EMG study if pain continues No further neurological workup indicated at this time. Thank you for this consultation. Will sign off. Please re-consult if needed. Case seen, discussed and reviewed with attending, Dr. Phelps. Radha Rodriguez PGY2 - Date & Time Date: 08/15/17 Time: 09:04 <Marcel Phelps - Last Filed: 08/15/17 10:14> Meds - Medications Medications: Current Medications Acetaminophen (Tylenol 325mg Tab) 650 mg PO Q6H PRN; Protocol PRN Reason: Fever >100.4 F Amlodipine Besylate (Norvasc) 5 mg PO DAILY NATHEN PRN Reason: Protocol Aspirin (Ecotrin) 81 mg PO 0800 NATHEN PRN Reason: Protocol Last Admin: 08/15/17 07:59 Dose: 81 mg Cyclobenzaprine HCl (Flexeril) 10 mg PO HS NATHEN Ibuprofen (Motrin Tab) 400 mg PO BID NATHEN PRN Reason: Protocol Last Admin: 08/14/17 18:17 Dose: 400 mg Nystatin/Triamcinolone Acetonide (Nystatin/Triamcinolone Ointment) 0 gm TOP BID NATHEN PRN Reason: Protocol Last Admin: 08/14/17 18:14 Dose: 1 appl Pantoprazole Sodium (Protonix Ec Tab) 40 mg PO ACB NATHEN PRN Reason: Protocol Last Admin: 08/15/17 07:59 Dose: 40 mg Paroxetine HCl (Paxil) 10 mg PO DAILY NATHEN PRN Reason: Protocol Potassium Chloride (Klor-Con 10) 10 meq PO BRK NATHEN PRN Reason: Protocol Last Admin: 08/15/17 07:59 Dose: 10 meq Pregabalin (Lyrica) 50 mg PO BID NATHEN Tramadol HCl (Ultram) 50 mg PO TID PRN; Protocol PRN Reason: Pain, moderate (4-7) Results - Vital Signs Recent Vital Signs: Last Vital Signs Temp 98.7 F 08/15/17 06:00 Pulse 67 08/15/17 06:00 Resp 20 08/15/17 06:00 BP 140/73 08/15/17 06:00 Pulse Ox 98 08/14/17 16:00 Attending/Attestation - Attestation I have personally seen and examined this patient.: Yes I have fully participated in the care of the patient.: Yes I have reviewed all pertinent clinical information: Yes
--- NOTE | 2017-08-15 09:32 | CON ---
ORTHOPEDIC CONSULTATION HISTORY OF PRESENT ILLNESS: Presently in room #315, bed #1, TCU floor. She did not go for physical therapy. Orthopedically, she has significant arthrosis of her left knee with genu varum with much decreased medial joint space, more on the left knee than the right knee, no effusion. She was given Depo-Medrol and Marcaine injection yesterday, which was 08/14/2017, with little benefit, it is when I asked how the knee felt 24 hours later and she did have a Hyalgan injection couple of years ago without any benefit, but I explained to not to consider MRI at this time because it will show arthrosis and if she does not want surgery, MRI is not going to be beneficial. I would do things that would help her which is therapy to strengthen the muscles and with arthrosis by minimizing the stairs and squatting and bending and do not sit on low chairs and minimize stairs. FINAL DIAGNOSES: Arthrosis of both knees, worse left than the right, with decreased strength based on the medial side shown on standing x-rays. If the patient wants, we could consider another bout of Euflexxa which is Hyalgan injection to the knees first to help and if she ever wants surgery, the best option at this time is unicondylar knee replacement, which is simple surgery and will last at least 20 years. Vasquez Younger DO
[2017-08-15] MEDS: Nystatin-Triamcinolone Ointment(30 gm) TOP SCH ×2 (10:18→17:23)
[2017-08-16] MEDS: Pantoprazole 40 mg EC Tab PO SCH (07:04)
[2017-08-16] MEDS: Potassium Chloride 10 mEq ER Tab PO SCH (07:51)
[2017-08-16] MEDS: Nystatin-Triamcinolone Ointment(30 gm) TOP SCH ×2 (10:33→18:09)
--- NOTE | 2017-08-16 11:38 | PN ---
DATE: 08/15/2017 SUBJECTIVE: The patient was seen this Monday evening in room number 315, bed 1. Today is day number 1 of her stay in Transitional Care Unit. She seems to be doing rather well. She is in good spirits. She reported less pain and that she ambulated with a walker today. She feels she is doing well with a walker, but is nervous with a cane. PHYSICAL EXAMINATION HEART: Regular, not tachycardiac. VITAL SIGNS: Stable. EXTREMITIES: Shows trace edema little, but no edema. ABDOMEN: Overweight. IMPRESSION: Severe arthritis of the lumbar spine with a moderate spinal stenosis, deconditioning, multiple falls at home, requiring ambulance assistance to help her to get up x3 in the last few days. PLAN: I spoke with the patient at great length and expressed my utmost urgency in her need to be fully engaged in physical therapy and 8-day stay in Transitional Care and she must be extremely fully ambulatory and take a full benefit of this stay. The patient seems understand and is quite motivated. So, we will have physical therapist to accelerate her program and aggressive therapy. Ray Grady MD
[2017-08-17] MEDS: Pantoprazole 40 mg EC Tab PO SCH (06:02)
[2017-08-17] MEDS: Potassium Chloride 10 mEq ER Tab PO SCH (08:27)
[2017-08-17] MEDS: Nystatin-Triamcinolone Ointment(30 gm) TOP SCH ×2 (11:26→17:27)
[2017-08-18] MEDS: Pantoprazole 40 mg EC Tab PO SCH (05:19)
[2017-08-18] MEDS: Potassium Chloride 10 mEq ER Tab PO SCH (09:00)
[2017-08-18] MEDS: Nystatin-Triamcinolone Ointment(30 gm) TOP SCH ×2 (11:00→17:17)
[2017-08-19] MEDS: Pantoprazole 40 mg EC Tab PO SCH (05:41)
[2017-08-19] MEDS: Potassium Chloride 10 mEq ER Tab PO SCH (08:08)
[2017-08-19] MEDS: Nystatin-Triamcinolone Ointment(30 gm) TOP SCH ×2 (09:54→17:45)
--- NOTE | 2017-08-19 14:39 | PN ---
DATE: 08/16/2017 SUBJECTIVE: The patient is a 77-year-old female who was admitted to [facility] complaining of weakness, difficulty ambulation. She simply could not ambulate. She was admitted to the medical floor, a workup was essentially negative. On the 08/14, she was transferred to transitional care unit for physical therapy. When seen, she is doing well. Her medications have been changed. Neurontin was changed to Lyrica. She was also given a muscle relaxer, Flexeril for some low back pain. PHYSICAL EXAMINATION: GENERAL: She is awake, alert, and oriented, in good spirits. VITAL SIGNS: Stable. LUNGS: On physical exam, lungs are clear anteriorly. HEART: Regular. ABDOMEN: Soft and nontender. We will continue to encourage physical therapy and follow the patient closely. Vasquez Grady MD
--- NOTE | 2017-08-19 18:29 | PN ---
DATE: 08/17/2017 The patient is a 77-year-old female who is admitted to [facility] with weakness and difficulty ambulating. Workup was essentially negative and 3 days ago on 08/14/2017, the patient is transferred to the transitional care unit for physical therapy. She is known to have past medical history positive for hypertension, lumbar spinal stenosis, and herniated disk in the lumbar spine. She is receiving Neurontin and Flexeril for her back pains. She is being followed by Dr. Younger and Dr. Phelps. She is known to be allergic to CODEINE AND MORPHINE. When seen today, the patient is in good spirits. She is awake, alert, and oriented. She did very well in physical therapy, ambulating 250 feet a rolling walker. Physical exam is unchanged. We are continuing to encourage ambulation and physical therapy and we will continue to follow the patient closely. Vasquez Grady MD MTDKristian
[2017-08-20] MEDS: Pantoprazole 40 mg EC Tab PO SCH (05:17)
[2017-08-20] MEDS: Potassium Chloride 10 mEq ER Tab PO SCH (08:19)
[2017-08-20] MEDS: Nystatin-Triamcinolone Ointment(30 gm) TOP SCH ×2 (10:47→17:40)
[2017-08-20 16:24] VITALS: RESP 18
[2017-08-21] MEDS: Pantoprazole 40 mg EC Tab PO SCH (05:39)
[2017-08-21] MEDS: Potassium Chloride 10 mEq ER Tab PO SCH (08:42)
[2017-08-21] MEDS: Nystatin-Triamcinolone Ointment(30 gm) TOP SCH ×2 (10:15→17:53)
[2017-08-22] MEDS: Pantoprazole 40 mg EC Tab PO SCH (06:11)
[2017-08-22] MEDS: Potassium Chloride 10 mEq ER Tab PO SCH (11:25)
[2017-08-22 11:28] VITALS: BP 122/59; PULSE 81
[2017-08-22 14:19] VITALS: TEMP 98.2; O2SAT 96
[2017-08-22] MEDS: Nystatin-Triamcinolone Ointment(30 gm) TOP SCH (14:58)
--- NOTE | 2017-08-23 10:45 | DS ---
HISTORY OF PRESENT ILLNESS: This is a 77-year-old woman, I have known for many years who came to the Emergency Room after called me unable to walk or stand. The patient had fallen approximately 3 times in the prior 3 days and requiring ambulance squad to assist her to her feet. With severe worsening of ability to walk, She came to the emergency room, was evaluated on emergent basis because of her history of breast CA. No metastatic disease or cord compression was seen. In fact, the MRI showed moderate spinal stenosis and significant arthritis to the lumbar spine. She was admitted to the acute care facility and stabilized with steroids and then comes to the Transitional Care Unit for additional physical therapy. This is the discharge summary for the patient stay on Transitional Care. PAST MEDICAL HISTORY: Significant for hypertension and breast cancer as noted above. She is also status post hysterectomy, cholecystectomy and GI bleed in the distant past in 2009. HOSPITAL COURSE: On the Transitional Care Unit, she engaged in the activities of the unit. I encourage her as best I could and spoke with the family and physical therapist to do as much as possible with her. By the completion of this eight days' stay, she was walking between 100 and 200 feet with a walker, but greatest difficulty was getting from standing to sitting and sitting to standing positions. Arrangements were made for home visiting nurse and physical therapy as well as homemaker. I have offered to see the patient in a home visit within 1 to 2 weeks after discharge home. We will follow her closely. FINAL DISCHARGE DIAGNOSES: 1. Deconditioning. 2. Osteoarthritis of the lumbar spine. 3. Spinal stenosis. 4. Hypertension. 5. Multiple falls at home. 6. Status post mastectomy and transverse rectus abdominis myocutaneous flap procedure. 7. History of anxiety and depression. PLAN: Discharge to home with visiting nurse services as outlined above, I will see the patient within 1 to 2 weeks. I offered her longer stay as another Subacute Care Facility. The patient is looking very much positive going home with her . Ray Grady MD THOMAS
== END 2017-08-22 16:24 | disposition home or self-care (01) | DRG 556 ==
LOC: TRCU 15:47
PROVIDERS: ADMIT Internal Medicine; ATTEND Internal Medicine
PROC: F07L6YZ Therapeutic Exercise Treatment of Musculoskeletal System - Lower Back / Lower Extremity using Other Equipment (ICD-10-PCS; principal; 2017-08-16)
PROC: F07Z9FZ Gait Training/Functional Ambulation Treatment using Assistive, Adaptive, Supportive or Protective Equipment (ICD-10-PCS; 2017-08-17)
PROC: F07Z8FZ Transfer Training Treatment using Assistive, Adaptive, Supportive or Protective Equipment (ICD-10-PCS; 2017-08-17)
PROC: F08Z2FZ Grooming/Personal Hygiene Treatment using Assistive, Adaptive, Supportive or Protective Equipment (ICD-10-PCS; 2017-08-18)
PROC: F08Z1FZ Dressing Techniques Treatment using Assistive, Adaptive, Supportive or Protective Equipment (ICD-10-PCS; 2017-08-20)
DX: R26.2 Difficulty in walking, not elsewhere classified (principal); M47.816 Spondylosis without myelopathy or radiculopathy, lumbar region; M48.061 Spinal stenosis, lumbar region without neurogenic claudication; M51.26 Other intervertebral disc displacement, lumbar region; M17.0 Bilateral primary osteoarthritis of knee; M21.162 Varus deformity, not elsewhere classified, left knee; I10 Essential (primary) hypertension; F32.9 Major depressive disorder, single episode, unspecified; F41.9 Anxiety disorder, unspecified; R29.6 Repeated falls; R53.1 Weakness; K21.9 Gastro-esophageal reflux disease without esophagitis; Z85.3 Personal history of malignant neoplasm of breast; Z90.11 Acquired absence of right breast and nipple; Z88.5 Allergy status to narcotic agent

== ENCOUNTER 2017-08-23 12:15 | Inpatient (IN) | payer BC, MEDICARE ==
[2017-08-23 12:26] VITALS: BMI 34.9
--- NOTE | 2017-08-23 12:59 | ED PDOC ---
Arrival/HPI - General Historian: Patient - History of Present Illness Time/Duration: < month Symptom Course: Improving Quality: Aching Severity Level: Severe Activities at Onset: Other (trying to get up) Context: Home - General Chief Complaint: Weakness/Neurological Deficit Time Seen by Provider: 08/23/17 12:19 - History of Present Illness Narrative History of Present Illness (Text): 08/23/17 12:58 77yo F PMH Breast CA s/p mastectomy, HTN, lumbar radiculopathy presenting with inability to get up x2 weeks. pt was discharged yesterday from TCU for similar weakness, which was attributed to her arthritis. pt states that she was improving at TCU with therapy but felt she could be independent at home; pt was unable to get out of bed this morning. pt denies cp, sob, back pain, neck pain, numbness/tingling, loss of urine or bowel control, headaches, n/v/d, fevers/ chills, changes in vision/hearing. pt has RW at home, which she uses. (Lele Meadows) Past Medical History - Provider Review Nursing Documentation Reviewed: Yes - Infectious Disease Hx of Infectious Diseases: None - Cardiac Hx Cardiac Disorders: Yes Hx Hypertension: Yes - Pulmonary Hx Respiratory Disorders: No - Neurological Hx Neurological Disorder: No Hx Paralysis: No - HEENT Hx HEENT Disorder: Yes Other/Comment: glasses - Renal Hx Renal Disorder: No - Endocrine/Metabolic Hx Endocrine Disorders: No - Hematological/Oncological Hx Blood Disorders: Yes Hx Blood Transfusions: Yes (16 YRS AGO) Hx Blood Transfusion Reaction: No Hx Cancer: Yes (s/p L mastectomy) - Integumentary Hx Dermatological Disorder: No - Musculoskeletal/Rheumatological Hx Musculoskeletal Disorders: Yes Hx Arthritis: Yes (severe in b/l knee) Hx Back Pain: No Hx Falls: Yes Hx Osteoarthritis: Yes - Gastrointestinal Hx Gastrointestinal Disorders: No - Genitourinary/Gynecological Hx Genitourinary Disorders: No - Psychiatric Hx Psychophysiologic Disorder: No Hx Emotional Abuse: No Hx Physical Abuse: No Hx Substance Use: No - Surgical History Hx Cholecystectomy: Yes Other/Comment: L mastectomy - Anesthesia Hx Anesthesia: Yes Hx Anesthesia Reactions: Yes (PALPATATIONS ;HALLUCINATIONS;FEELINGS OF SEVERE ANGER) Hx Malignant Hyperthermia: No - Suicidal Assessment Feels Threatened In Home Enviroment: No Family/Social History - Physician Review Nursing Documentation Reviewed: Yes Family/Social History: No Known Family HX Smoking Status: Never Smoked Hx Alcohol Use: No Hx Substance Use: No Allergies/Home Meds Allergies/Adverse Reactions: Allergies codeine Allergy (Verified 08/23/17 12:26) ANGIOEDEMA Home Medications: Home Meds Medication Instructions Recorded Confirmed Paroxetine HCl 20 mg PO HS 07/28/15 08/23/17 Raloxifene [Evista] 60 mg PO DAILY 07/28/15 08/23/17 Omeprazole Magnesium [Prilosec] 20 tab PO DAILY 08/10/17 08/23/17 Review of Systems - Physician Review All systems were reviewed & negative as marked: Yes - Review of Systems Constitutional: absent: Fevers Eyes: absent: Vision Changes ENT: absent: Hearing Changes Respiratory: absent: SOB Cardiovascular: absent: Chest Pain Gastrointestinal: absent: Diarrhea, Nausea, Vomiting Musculoskeletal: Arthralgias (b/l knees), Joint Swelling (b/l knees), Other. absent: Back Pain, Neck Pain Neurological: absent: Headache, Dizziness, Focal Weakness, Speech Changes, Facial Droop Physical Exam Vital Signs Reviewed: Yes Appearance: Positive for: Well-Appearing Pain Distress: None Mental Status: Positive for: Alert and Oriented X 3 - Systems Exam Head: Present: Atraumatic, Normocephalic Pupils: Present: PERRL Extroacular Muscles: Present: EOMI Conjunctiva: Present: Normal Mouth: Present: Moist Mucous Membranes Neck: Present: Normal Range of Motion Respiratory/Chest: Present: Clear to Auscultation, Good Air Exchange. No: Wheezes, Rales, Rhonchi Cardiovascular: Present: Regular Rate and Rhythm, Normal S1, S2. No: Murmurs Abdomen: Present: Normal Bowel Sounds. No: Tenderness, Distention Upper Extremity: Present: Normal Inspection, Normal ROM, NORMAL PULSES, Neurovascularly Intact Lower Extremity: Present: Normal Inspection, Edema (1+), NORMAL PULSES, Normal ROM, Tenderness (b/l knees and distal), Swelling (b/l knees), Neurovascularly Intact, Other (unable to bear weight on her knees). No: Deformity Neurological: Present: CN II-XII Intact, Speech Normal, Motor Func Grossly Intact, Normal Sensory Function, Other (strength 5/5 x4 extremities) Skin: Present: Warm, Dry Psychiatric: Present: Alert, Oriented x 3 Vital Signs Temp Pulse Resp BP Pulse Ox 08/23/17 12:24 98.7 F 89 16 135/66 98 Medical Decision Making Re-evaluation Time: 14:58 Reassessment Condition: Re-examined, Unchanged - Lab Interpretations I have reviewed the lab results: Yes ED Course and Treatment: 08/23/17 13:18 Impression: 77yo F presenting with inability to get up from sitting position likely 2/2 severe arthritis Plan: - Labs - UA Progress: Dr. Grady was contacted and advises that patient would benefit from continued physical therapy. 08/23/17 13:55 Patient attempted to stand with assistance of resident but could not load her knees and they would give out. states that this is an chronic issue and that he used to lift her up from the back to help her stand up but that he is now unable to do so because of physical issues. 08/23/17 14:58 it was explained to the patient that she would be admitted per Dr. Grady's recommendations and that she would receive physical therapy as an inpatient. ( [facility]le [facility]) 08/23/17 14:58 77 yo female with difficulty standing up and walking. Agree with resident history and physical, assessment and plan. Patient was unable to stand and it was very difficult to get her to stand steady. There is concern for a fall risk and she will be admitted under Dr. Grady's service. I discussed with Dr Grady and he agreed to place her on observation. (Mick Clemons) - Lab Interpretations Lab Results: 08/23/17 13:20 08/23/17 13:30 Lab Results 08/23/17 13:30: Sodium 141, Potassium 4.5, Chloride 104, Carbon Dioxide 25, Anion Gap 17, BUN 25 H, Creatinine 0.7, Est GFR ( Amer) > 60, Est GFR ( Non-Af Amer) > 60, Random Glucose 92, Calcium 9.1, Total Bilirubin 0.4, AST 18, ALT 30, Alkaline Phosphatase 110, Total Protein 7.1, Albumin 3.9, Globulin 3.2, Albumin/Globulin Ratio 1.2 08/23/17 13:20: PT 11.5, INR 1.04, APTT 31.9 08/23/17 13:20: WBC 12.1 H, RBC 4.40, Hgb 11.6 L, Hct 37.4, MCV 85.0, MCH 26.4, MCHC 31.0, RDW 15.5 H, Plt Count 348, MPV 9.7, Gran % 80.9 H, Lymph % (Auto) 11.1 L, Carver % (Auto) 6.8 H, Eos % (Auto) 1.1 L, Baso % (Auto) 0.1, Gran # 9.77 H, Lymph # 1.3, Carver # 0.8 H, Eos # 0.1, Baso # 0.01 - Medication Orders Current Medication Orders: Acetaminophen (Tylenol 325mg Tab) 650 mg PO Q6H PRN PRN Reason: Fever >100.4 F Amlodipine Besylate (Norvasc) 5 mg PO DAILY [facility] Ibuprofen (Motrin Tab) 400 mg PO BID [facility] Last Admin: 08/23/17 17:19 Dose: 400 mg MAR Pain/Vitals Document 08/23/17 17:19 SD (Rec: 08/23/17 17:20 [place] [id number] Pain Reassessment Is This A Pain ReAssessment? No Presence of Pain Presence of Pain Yes Pain Scale Used Pain Scale Used Numeric Location Left, Right or Bilateral Bilateral Pantoprazole Sodium (Protonix Ec Tab) 40 mg PO 0600 [facility] Paroxetine HCl (Paxil) 20 mg PO HS [facility] Pregabalin (Lyrica) 50 mg PO BID [facility] Last Admin: 08/23/17 17:19 Dose: 50 mg Raloxifene HCl (Evista) 60 mg PO DAILY [facility] Discontinued Medications Pneumococcal Polyvalent Vaccine (Pneumovax 23 Vaccine) 0.5 ml IM .ONCE ONE Stop: 08/23/17 15:36 Last Admin: 08/23/17 15:56 Dose: Disposition/Present on Arrival - Present on Arrival Any Indicators Present on Arrival: No History of DVT/PE: No History of Uncontrolled Diabetes: No Urinary Catheter: No History of Decub. Ulcer: No History Surgical Site Infection Following: None - Disposition Have Diagnosis and Disposition been Completed?: Yes Disposition Time: 14:57 Patient Plan: Admission - Disposition Diagnosis: Arthritis, Weakness, Ataxia Disposition: HOSPITALIZED Patient Problems: Current Active Problems Problem Status Onset Arthritis Acute Weakness Acute Condition: FAIR
[2017-08-23 13:27] LABS: BASO # 0.01 K/mm3 (0.0-2.0); BASO % 0.1 % (0.0-3.0); EOS # 0.1 (0.0-0.7); EOS % 1.1 % (1.5-5.0); GRAN # 9.77 (1.4-6.5); GRAN % 80.9 % (50.0-68.0); HEMATOCRIT 37.4 % (36.0-48.0); LYMPH # 1.3 (1.2-3.4); LYMPH % 11.1 % (22.0-35.0); MEAN CORPUSCULAR HEMOGLOBIN 26.4 pg (25.0-35.0); MEAN PLATELET VOLUME 9.7 fl (7.0-11.0); MONO # 0.8 (0.1-0.6); MONO % 6.8 % (1.0-6.0); RED CELL DISTRIBUTION WIDTH 15.5 % (11.5-14.5); WHITE BLOOD COUNT 12.1 10^3/ul (4.5-11.0)
[2017-08-23 13:46] LABS: INR 1.04 (0.93-1.08); PARTIAL THROMBOPLASTIN TIME 31.9 Seconds (25.1-36.5)
[2017-08-23 13:53] LABS: ALB/GLOB RATIO 1.2 (1.1-1.8); ALKALINE PHOSPHATASE 110 U/L (38-126); ALT/SGPT 30 U/L (7-56); AST/SGOT 18 U/L (14-36); BILIRUBIN,TOTAL 0.4 mg/dL (0.2-1.3); BLOOD UREA NITROGEN 25 mg/dL (7-21); CALCIUM 9.1 mg/dL (8.4-10.5); CARBON DIOXIDE 25 mmol/L (21-33); CHLORIDE 104 mmol/L (98-107); GFR AFRICAN-AMERICAN > 60; GLUCOSE,RANDOM 92 mg/dL (70-110); SODIUM 141 mmol/L (132-148); TOTAL PROTEIN 7.1 g/dL (5.8-8.3)
[2017-08-23 13:54] LABS: POTASSIUM 4.5 mmol/L (3.6-5.0)
[2017-08-23] MEDS ORDERED: Pneumococcal 23-Valent Vaccine IM ONE (15:35)
[2017-08-24] MEDS: Pantoprazole 40 mg EC Tab PO SCH (05:50)
[2017-08-24] MEDS ORDERED: Pantoprazole 20 mg EC Tab PO SCH (06:00)
--- NOTE | 2017-08-25 02:04 | PN ---
DATE: 08/24/2017 SUBJECTIVE: The patient was seen this evening in room 567, bed 1. There were no visitors present at that time. She was sitting out of bed in a chair. I spoke with her at length regarding her presenting symptoms and admission yesterday by Dr. Richard Grady. The patient said she was doing well on Transitional Care Unit, was walking 100 to 200 feet. At home, was feeling energetic and motivated to continue exercise, sat on a chair when her went to work and simply could not get up. She did not have seizures. She did not have the upper arm or lower extremity strength to push herself up from the chair. I told her she can bend to the side and stood alongside her, also offered assistance while she got up from the chair. The patient pushed herself to the edge of the chair, squarely planting her feet on the ground with her arms on the armrest and seemed to give a good effort trying to stand, but was simply unable to use her leg muscles to stand upright. There was no tremor. There was no ataxia. There was no ataxia in the upper extremities noted on exam. She simply had leg weakness preventing her from standing. As a result of these findings, I called the neurologist to see her once again. They had seen her during the last admission for her back pain and difficulty ambulating and concurred with continuing the steroids. We need some more input from them at this time around. I also see that Case Management is working on a discharge plan to a longer term subacute care facility. I reviewed some of these facilities with the patient, ones that I was familiar with that were in her plan. I was not familiar with any of these, but gave her some additional names to talk to the machine adjuster leader case trim, web content & social media manager about tomorrow. We will await input from Neurology on the final discharge plan. Ray Grady MD
--- NOTE | 2017-08-25 03:50 | HP ---
HISTORY OF PRESENT ILLNESS: The patient is a 77-year-old female with a history of spinal stenosis, herniated disk of lumbar spine and history of hypertension. She was hospitalized with leg weakness and discharged yesterday, however, she went home, she was doing well. She said goodbye to her this morning and found she could not stand up out of her chair. Her legs were simply too weak. She could not move. She could not get up. She therefore, called for the squad and once again returned to the emergency room. When seen, the patient is awake, alert, and oriented. Feeling better, however, the leg weakness persists. PAST MEDICAL HISTORY: Positive for spinal stenosis, herniated lumbar disks, hypertension. MEDICATIONS: The patient cannot recall the medication that she was taking. I believe she was on Lyrica and Flexeril, however, for the leg pains and leg weaknesses. ALLERGIES: SHE IS KNOWN TO BE ALLERGIC TO COUMADIN AND MORPHINE. REVIEW OF SYSTEMS: Otherwise unremarkable. PHYSICAL EXAMINATION: GENERAL: She is awake, alert and oriented. VITAL SIGNS: She is afebrile with a blood pressure of 132/70 and a heart rate of 90 beats per minute. HEAD, EYES, EARS, NOSE AND THROAT: Unremarkable. NECK: Supple with no lymphadenopathy, no goiter. LUNGS: Clear to auscultation and percussion. HEART: Regular. ABDOMEN: Round, soft, nontender with no organomegaly. EXTREMITIES: Free of cyanosis, clubbing or edema. NEUROLOGIC: Th patient is awake, alert, and oriented with no focal neurological signs. LABORATORY DATA: Admitting laboratory show the white blood cell count to be 12.1, hemoglobin and hematocrit are 11.6, and 37.4 respectively, platelet count is 348. Sodium is 141, potassium 4.5, BUN 25, creatinine 0.7, nonfasting glucose is 92. IMPRESSION: So the patient is readmitted after one night at home to [facility]. We will pursue transfer to a subacute care facility, possibly [facility] for rehab as soon as possible. Vasquez Grady MD
[2017-08-25] MEDS: Pantoprazole 40 mg EC Tab PO SCH (05:49)
--- NOTE | 2017-08-25 08:04 | CP.PCM.CON ---
History of Present Illness - History of Present Illness History of Present Illness: Neurology Consult Note for Radha Adan PGY2 Reason for consult: difficulty standing up This is a 77Y F with PMH lumbar disc herniation, spinal stenosis, breast cancer s/p mastectomy, HTN, Gerd, depression who was admitted for back pain last week and was recently discharged from TCU. When she got home she reports she was unable to get up from out of chair. This is not new for her. She denies having trauma, new weakness, numbness/tingling, chest pain, shortness of breath, bowel or bladder incontinence/retention, nausea, vomiting or diarrhea. At last admission, she had an MRI if the lumbar spine which showed L5 disc herniation, spinal stenosis in L1-L4, but no acute changes from last imaging. When she was in TCU she was placed on Lyrica and flexeril for her back pain. At this time she reports she does not have any back pain at all, but just feels like she does not have the strength to get herself out of the chair and has pain in her knees bilaterally. At last admission she did get a cortisone injection in her L knee which reports helped with the pain and stiffness. She did have orthovisc injections in the past which only helped her temporarily. Patient reports once she is able to stand, she has no trouble walking with a walker. Past medical history: spinal stenosis, lumbar disc hernation, Breast cancer s/p L mastectomy, HTN, GERD, Depression Past surgical history: L mastectomy, cholecystectomy Home meds: as per MAR Allergies: Codeine (makes her altered) Social history: Denies EtOH, drug or tobacco use Review of Systems - Review of Systems All systems: reviewed and no additional remarkable complaints except Review of Systems: + leg weakness Past Patient History - Infectious Disease Hx of Infectious Diseases: None - Past Social History Smoking Status: Never Smoked Alcohol: None Drugs: Denies Home Situation {Lives}: With Family - CARDIAC Hx Hypertension: Yes - PULMONARY Hx Respiratory Disorders: No - NEUROLOGICAL Hx Neurological Disorder: No Hx Paralysis: No - HEENT Hx HEENT Problems: Yes Other/Comment: glasses - RENAL Hx Chronic Kidney Disease: No - ENDOCRINE/METABOLIC Hx Endocrine Disorders: No - HEMATOLOGICAL/ONCOLOGICAL Hx Blood Disorders: Yes Hx Blood Transfusions: Yes (16 YRS AGO) Hx Blood Transfusion Reaction: No Hx Cancer: Yes (s/p L mastectomy) - INTEGUMENTARY Hx Dermatological Problems: No - MUSCULOSKELETAL/RHEUMATOLOGICAL Hx Arthritis: Yes (bilat knee OA) - GASTROINTESTINAL Hx Gastrointestinal Disorders: No - GENITOURINARY/GYNECOLOGICAL Hx Genitourinary Disorders: No - PSYCHIATRIC Hx Psychophysiologic Disorder: No Hx Emotional Abuse: No Hx Physical Abuse: No Hx Substance Use: No - SURGICAL HISTORY Hx Cholecystectomy: Yes Other/Comment: L mastectomy - ANESTHESIA Hx Anesthesia: Yes Hx Anesthesia Reactions: Yes (PALPATATIONS ;HALLUCINATIONS;FEELINGS OF SEVERE ANGER) Hx Malignant Hyperthermia: No Meds Allergies/Adverse Reactions: Allergies Allergy/AdvReac Type Severity Reaction Status Date / Time codeine Allergy ANGIOEDEMA Verified 08/23/17 12:26 - Medications Medications: Current Medications Acetaminophen (Tylenol 325mg Tab) 650 mg PO Q6H PRN PRN Reason: Fever >100.4 F Amlodipine Besylate (Norvasc) 5 mg PO DAILY [facility] Last Admin: 08/24/17 09:51 Dose: 5 mg Bupropion HCl (Wellbutrin) 75 mg PO BID [facility] Ibuprofen (Motrin Tab) 400 mg PO BID [facility] Last Admin: 08/24/17 17:13 Dose: 400 mg Pantoprazole Sodium (Protonix Ec Tab) 40 mg PO 0600 [facility] Last Admin: 08/25/17 05:49 Dose: Not Given Paroxetine HCl (Paxil) 20 mg PO HS [facility] Last Admin: 08/24/17 21:57 Dose: 20 mg Pregabalin (Lyrica) 50 mg PO BID [facility] Last Admin: 08/24/17 17:12 Dose: 50 mg Raloxifene HCl (Evista) 60 mg PO DAILY [facility] Last Admin: 08/24/17 10:04 Dose: 60 mg Physical Exam - Constitutional Appears: No Acute Distress - Head Exam Head Exam: ATRAUMATIC, NORMAL INSPECTION, NORMOCEPHALIC - Eye Exam Eye Exam: Normal appearance, PERRL Pupil Exam: NORMAL ACCOMODATION - ENT Exam ENT Exam: Mucous Membranes Moist - Respiratory Exam Respiratory Exam: Clear to Auscultation Bilateral, NORMAL BREATHING PATTERN. absent: Rales, Rhonchi, Wheezes - Cardiovascular Exam Cardiovascular Exam: REGULAR RHYTHM, +S1, +S2. absent: Gallop, Rubs, Systolic Murmur - GI/Abdominal Exam GI & Abdominal Exam: Normal Bowel Sounds, Soft. absent: Mass, Rebound, Rigid, Tenderness - Extremities Exam Extremities exam: Positive for: normal inspection. Negative for: calf tenderness, pedal edema - Neurological Exam Neurological exam: Alert, CN II-XII Intact, Oriented x3 Additional comments: gait deferred - Expanded Neurological Exam Expanded Patient oriented to: person, place, time Cerebellar Function: Finger to Nose: Normal Upper motor neuron: Babinski Sign: Normal, Pronator Drift: Normal Sensory exam: Lower Extremity 2 Point Discrimination: Normal, Lower Extremity Light Touch: Normal, Upper Extremity 2 Point Discrimination: Normal, Upper Extremity Light Touch: Normal Neuro motor strength exam: Left Upper Extremity: 5, Right Upper Extremity: 5, Left Lower Extremity: 5, Right Lower Extremity: 5 - Psychiatric Exam Psychiatric exam: Normal Affect, Normal Mood - Skin Skin Exam: Dry, Warm Results - Vital Signs Recent Vital Signs: Last Vital Signs Temp 98.5 F 08/24/17 16:27 Pulse 82 08/24/17 16:27 Resp 18 08/24/17 16:27 BP 120/61 08/24/17 16:27 Pulse Ox 97 08/24/17 16:27 - Labs Result Diagrams: 08/23/17 13:20 08/23/17 13:30 Assessment & Plan - Assessment and Plan (Free Text) Assessment: This is a 77Y F with PMH lumbar disc herniation, spinal stenosis, breast cancer s/p mastectomy, HTN, Gerd, depression who was admitted for back pain last week and was recently discharged from TCU due to insurance issues. When she got home she reports she was unable to get up from out of chair. MRI of lumbar spine showed no acute changes with L4-L5 disc herniation and spinal stenosis. Patient does not have any focal neurological deficits and has good strength. Weakness is most likely secondary to de-conditioning with chronic osteoarthritis. Plan: - Continue Lyrica 50mg BID - Continue Motrin - Continue physical therapy - Out of bed to chair - Ortho consulted - Patient will benefit with subacute rehab as well as outpatient rehab upon discharge from subacute rehab Case seen, discussed and reviewed with Dr. Phelps. Radha Rodriguez PGY2 - Date & Time Date: 08/25/17 Time: 08:08
[2017-08-25] MEDS ORDERED: Bupivacaine 0.5% Inj(30mL) IJ ONE (11:17)
[2017-08-25] MEDS ORDERED: MethylPREDNISolone Depo 40 mg/ml Inj IM ONE (11:17)
[2017-08-25 12:16] LABS: FLUID TYPE SYNOVIAL FLUID
[2017-08-25 12:31] LABS: SYNOVIAL FLUID LYMPHOCYTE 10.2 % (0-0); SYNOVIAL FLUID NEUTROPHIL 89.8 % (0-0); SYNOVIAL FLUID TOTAL COUNT 100 (0-0)
--- NOTE | 2017-08-26 04:49 | PN ---
DATE: 08/25/2017 SUBJECTIVE: I spoke with spray worker earlier today. They have been working on subacute rehab for this patient who still cannot stand from a chair. Physical therapy evaluation report was a little odd yesterday and that they recommended home with services; however, the patient is unable to stand up from a chair, fell at least 4 times at home requiring 911 ambulance call to help her get off the floor, making this not a reasonable or possible option. Today with the patient's present, I asked her to get up from the chair. I supported her and gave her a lift from the axilla, she is still unable to stand, straighten her knees or maintain weight. She received the cortisone injection today from Dr. Younger. she was out of bed to the chair, likely she is still unable to get up from her seated position in the chair. We will continue Physical Therapy. Then, I spoke with the manager social media and ed case manager. She is pending insurance approval for out of network benefits, transfer to subacute rehab facility. Ray Grady MD THOMAS
[2017-08-26] MEDS: Pantoprazole 40 mg EC Tab PO SCH ×2 (05:56→09:54)
[2017-08-27] MEDS: Pantoprazole 40 mg EC Tab PO SCH (05:49)
--- NOTE | 2017-08-27 23:49 | PN ---
DATE: 08/27/2017 SUBJECTIVE: The patient was seen this Monday afternoon in room 567, with no visitors present at the moment. I spoke with her at length. We tried to stand up again and she is still having not just difficulty, but totally and completely unable to standup even with me at her side, given her an assisted lift of 20 to 30 pounds. She reports that earlier she was able to ambulate with physical therapy and simply needs more help. PHYSICAL EXAMINATION: The remainder of the physical exam is unremarkable. IMPRESSION: 1. Gait abnormality. 2. Inability to stand. 3. Spinal stenosis. 4. Osteoarthritis of the lumbar spine. 5. Hypertension. PLAN: Continue physical therapy at subacute rehab facility when bed is available. Ray Grady MD
[2017-08-28 00:07] VITALS: RESP 18; O2SAT 97
--- NOTE | 2017-08-28 00:37 | PN ---
DATE: 08/26/2017 SUBJECTIVE: Patient was seen this Monday morning in room 567, bed 1 with her at the bedside. She is awake and in good spirits, alert, and clear. I spoke with them both about awaiting transfer to subacute rehab facility. She tells me she has out of network benefits. I tried to explain what there may still be some additional charges, more so than in network I tried to ambulate the patient again, but had difficulty getting her up from a seated position. She did better with physical therapist and once she is up, she is able to ambulate, but the problem is getting from sitting to standing position. Ray Grady MD MTDD
[2017-08-28] MEDS: Pantoprazole 40 mg EC Tab PO SCH (05:54)
[2017-08-28 07:50] VITALS: BP 143/71; TEMP 98.3
[2017-08-28 11:19] VITALS: PULSE 77
--- NOTE | 2017-08-28 13:45 | CP.PCM.CON ---
History of Present Illness - History of Present Illness History of Present Illness: Neurology consult note for Dr. Phelps's service cc: difficulty ambulating HPI: Patient is a 77 year old female with history of lumbar disc herniation, spinal stenosis, breast cancer s/p mastectomy, HTN, GERD and depression who was originally admitted to [facility] for back pain several weeks prior. Upon discharge home she reported difficulty getting out of her chair which has been a chronic problem for her in the past. She denieed any trauma, new weakness, numbness/ tingling, chest pain, shortness of breath, bowel or bladder incontinence/ retention, nausea, vomiting or diarrhea. An MRI of the lumbar spine done on last admission showed L5 disc herniation, spinal stenosis in L1-L4, but no acute changes from last imaging. Denies chest pain, palpitations, SOB, abdominal pain, nausea, vomiting. Admits to chronic back pain and weakness. 12point ROS as per HPI above otherwise negative Past medical history: spinal stenosis, lumbar disc hernation, Breast cancer s/p L mastectomy, HTN, GERD, Depression Past surgical history: L mastectomy, cholecystectomy Home meds: as per MAR Allergies: Codeine (makes her altered) Social history: Denies EtOH, drug or tobacco use Past Patient History - Infectious Disease Hx of Infectious Diseases: None - Past Social History Smoking Status: Never Smoked Alcohol: None Drugs: Denies Home Situation {Lives}: With Family - CARDIAC Hx Hypertension: Yes - PULMONARY Hx Respiratory Disorders: No - NEUROLOGICAL Hx Neurological Disorder: No Hx Paralysis: No - HEENT Hx HEENT Problems: Yes Other/Comment: glasses - RENAL Hx Chronic Kidney Disease: No - ENDOCRINE/METABOLIC Hx Endocrine Disorders: No - HEMATOLOGICAL/ONCOLOGICAL Hx Blood Disorders: Yes Hx Blood Transfusions: Yes (16 YRS AGO) Hx Blood Transfusion Reaction: No Hx Cancer: Yes (s/p L mastectomy) - INTEGUMENTARY Hx Dermatological Problems: No - MUSCULOSKELETAL/RHEUMATOLOGICAL Hx Arthritis: Yes (bilat knee OA) - GASTROINTESTINAL Hx Gastrointestinal Disorders: No - GENITOURINARY/GYNECOLOGICAL Hx Genitourinary Disorders: No - PSYCHIATRIC Hx Psychophysiologic Disorder: No Hx Emotional Abuse: No Hx Physical Abuse: No Hx Substance Use: No - SURGICAL HISTORY Hx Cholecystectomy: Yes Other/Comment: L mastectomy - ANESTHESIA Hx Anesthesia: Yes Hx Anesthesia Reactions: Yes (PALPATATIONS ;HALLUCINATIONS;FEELINGS OF SEVERE ANGER) Hx Malignant Hyperthermia: No Meds Allergies/Adverse Reactions: Allergies Allergy/AdvReac Type Severity Reaction Status Date / Time codeine Allergy ANGIOEDEMA Verified 08/23/17 12:26 - Medications Medications: Current Medications Acetaminophen (Tylenol 325mg Tab) 650 mg PO Q6H PRN PRN Reason: Fever >100.4 F Amlodipine Besylate (Norvasc) 5 mg PO DAILY [facility] Last Admin: 08/28/17 10:35 Dose: 5 mg Bupropion HCl (Wellbutrin) 75 mg PO BID [facility] Last Admin: 08/28/17 11:14 Dose: 75 mg Ibuprofen (Motrin Tab) 400 mg PO BID [facility] Last Admin: 08/28/17 11:10 Dose: 400 mg Pantoprazole Sodium (Protonix Ec Tab) 40 mg PO 0600 [facility] Last Admin: 08/28/17 05:54 Dose: 40 mg Paroxetine HCl (Paxil) 20 mg PO HS [facility] Last Admin: 08/27/17 21:15 Dose: 20 mg Pregabalin (Lyrica) 50 mg PO BID [facility] Last Admin: 08/28/17 11:16 Dose: 50 mg Raloxifene HCl (Evista) 60 mg PO DAILY [facility] Last Admin: 08/28/17 11:16 Dose: 60 mg Physical Exam - Constitutional Appears: No Acute Distress - Head Exam Head Exam: ATRAUMATIC, NORMAL INSPECTION, NORMOCEPHALIC - Eye Exam Eye Exam: EOMI Pupil Exam: PERRL - ENT Exam ENT Exam: Mucous Membranes Moist - Respiratory Exam Respiratory Exam: Clear to Auscultation Bilateral. absent: Rales, Rhonchi, Wheezes - Cardiovascular Exam Cardiovascular Exam: RRR, +S2. absent: Gallop, Rubs - GI/Abdominal Exam GI & Abdominal Exam: Soft. absent: Distended, Firm, Guarding, Rigid, Tenderness - Neurological Exam Neurological exam: Alert, Oriented x3 - Psychiatric Exam Psychiatric exam: Normal Affect, Normal Mood - Skin Skin Exam: Dry, Intact, Normal Color, Warm Results - Vital Signs Recent Vital Signs: Last Vital Signs Temp 98.3 F 08/28/17 07:30 Pulse 77 08/28/17 10:35 Resp 18 08/28/17 07:30 BP 143/71 08/28/17 10:35 Pulse Ox 97 08/28/17 07:30 - Labs Result Diagrams: 08/23/17 13:20 08/23/17 13:30 Assessment & Plan - Assessment and Plan (Free Text) Plan: 77 year old female with history of lumbar disc herniation, spinal stenosis, breast cancer s/p mastectomy, HTN, Gerd, depression who was admitted for back pain. MRI of lumbar spine showed no acute changes with L4-L5 disc herniation and spinal stenosis. Patient does not have any focal neurological deficits and has good strength. Weakness is most likely secondary to de-conditioning with chronic osteoarthritis. -Continue Lyrica 50mg BID -Continue Motrin -Recommend physical therapy evaluation/treatment -Out of bed to chair as tolerated -f/u Orthopedic recommendations -Patient will benefit from subacute rehab -Further recommendations as per attending, Dr. Phelps Patient seen and case discussed/reviewed with attending, Dr. Phelps. - Date & Time Date: 08/28/17 Time: 13:50
--- NOTE | 2017-08-28 15:32 | CP.PCM.PN ---
Subjective - Date & Time of Evaluation Date of Evaluation: 08/28/17 Time of Evaluation: 13:00 - Subjective Subjective: Neurology progress note for Dr. Phelps's service Patient seen and examined at bedside this afternoon. No acute overnight events or new complaints reported. She is pending transfer to subacute rehab. Denies chest pain, palpitations, SOB. Objective - Vital Signs/Intake and Output Vital Signs (last 24 hours): Temp Pulse Resp BP Pulse Ox 98.3 F 77 18 143/71 97 08/28/17 07:30 08/28/17 10:35 08/28/17 07:30 08/28/17 10:35 08/28/17 07:30 Intake and Output: 08/28/17 08/28/17 06:59 18:59 Intake Total 480 Balance 480 - Labs Labs: PT 11.5 SECONDS (9.4-12.5) 08/23/17 13:20 INR 1.04 (0.93-1.08) 08/23/17 13:20 APTT 31.9 Seconds (25.1-36.5) 08/23/17 13:20 - Constitutional Appears: No Acute Distress - Head Exam Head Exam: ATRAUMATIC, NORMAL INSPECTION, NORMOCEPHALIC - Eye Exam Eye Exam: EOMI, PERRL - ENT Exam ENT Exam: Mucous Membranes Moist - Respiratory Exam Respiratory Exam: Clear to Ausculation Bilateral. absent: Rales, Rhonchi, Wheezes - Cardiovascular Exam Cardiovascular Exam: RRR, +S1, +S2. absent: Gallop, Rubs, Murmur - GI/Abdominal Exam GI & Abdominal Exam: Soft. absent: Distended, Firm, Guarding, Rigid, Tenderness , Rebound - Neurological Exam Neurological Exam: Alert, Awake, CN II-XII Intact, Oriented x3 - Psychiatric Exam Psychiatric exam: Normal Affect, Normal Mood - Skin Skin Exam: Dry, Intact, Normal Color, Warm Assessment and Plan - Assessment and Plan (Free Text) Plan: 77 year old female with history of lumbar disc herniation, spinal stenosis, breast cancer s/p mastectomy, HTN, Gerd, depression who was admitted for back pain. MRI of lumbar spine showed no acute changes with L4-L5 disc herniation and spinal stenosis. Patient does not have any focal neurological deficits and has good strength. Weakness is most likely secondary to de-conditioning with chronic osteoarthritis. -Continue Lyrica 50mg BID -Continue Motrin -Recommend physical therapy evaluation/treatment -Out of bed to chair as tolerated -f/u Orthopedic recommendations -Patient will benefit from subacute rehab, pending transfer -Further recommendations as per attending, Dr. Phelps Patient seen and case discussed/reviewed with attending, Dr. Phelps.
== END 2017-08-28 14:37 | DRG 552 ==
LOC: ED 12:15 → ERH 13:56 → 5RNO 14:53 → OBSVTOIN 08-24 18:19
PROVIDERS: ADMIT Internal Medicine; ATTEND Internal Medicine
DX: M51.26 Other intervertebral disc displacement, lumbar region (principal); I10 Essential (primary) hypertension; M48.00 Spinal stenosis, site unspecified; M17.0 Bilateral primary osteoarthritis of knee; M47.26 Other spondylosis with radiculopathy, lumbar region; K21.9 Gastro-esophageal reflux disease without esophagitis; Z79.899 Other long term (current) drug therapy; Z85.3 Personal history of malignant neoplasm of breast; Z90.12 Acquired absence of left breast and nipple; Z90.49 Acquired absence of other specified parts of digestive tract; Z88.5 Allergy status to narcotic agent

== ENCOUNTER 2018-08-05 12:09 | Inpatient (IN) | payer BC, MEDICARE ==
[2018-08-05 12:10] VITALS: BMI 34.9
--- NOTE | 2018-08-05 12:40 | ED PDOC ---
Arrival/HPI - General Chief Complaint: Lower Extremity Problem/Injury Time Seen by Provider: 08/05/18 12:19 Historian: Patient - History of Present Illness Narrative History of Present Illness (Text): 78yoF with long standing both knee pain, having both lower extremities with swelling but no calf pain/nausea/vomiting/headache/dizziness/difficulty breathing/chest pain/abdomen pain/numbness/tingling/loss of limb function. social: recently admitted to the ICU. 08/05/18 12:45 Past Medical History - Provider Review Nursing Documentation Reviewed: Yes - Travel History Have you recently traveled outside [place] w/in the past 3 mons?: No - Infectious Disease Hx of Infectious Diseases: None - Reproductive Menopause: No - Cardiac Hx Hypertension: Yes - Pulmonary Hx Respiratory Disorders: No - Neurological Hx Neurological Disorder: No Hx Paralysis: No - HEENT Hx HEENT Disorder: Yes Other/Comment: glasses - Renal Hx Renal Disorder: No - Endocrine/Metabolic Hx Endocrine Disorders: No - Hematological/Oncological Hx Blood Disorders: Yes Hx Blood Transfusions: Yes (16 YRS AGO) Hx Blood Transfusion Reaction: No Hx Cancer: Yes (s/p L mastectomy) - Integumentary Hx Dermatological Disorder: No - Musculoskeletal/Rheumatological Hx Arthritis: Yes (bilat knee OA) - Gastrointestinal Hx Gastrointestinal Disorders: No - Genitourinary/Gynecological Hx Genitourinary Disorders: No - Psychiatric Hx Psychophysiologic Disorder: No Hx Emotional Abuse: No Hx Physical Abuse: No Hx Substance Use: No - Surgical History Hx Cholecystectomy: Yes Other/Comment: L mastectomy - Anesthesia Hx Anesthesia: Yes Hx Anesthesia Reactions: Yes (PALPATATIONS ;HALLUCINATIONS;FEELINGS OF SEVERE ANGER) Hx Malignant Hyperthermia: No - Suicidal Assessment Feels Threatened In Home Enviroment: No Family/Social History - Physician Review Nursing Documentation Reviewed: Yes Family/Social History: Unknown Family HX Smoking Status: Never Smoked Hx Alcohol Use: No Hx Substance Use: No Allergies/Home Meds Allergies/Adverse Reactions: Allergies codeine Allergy (Verified 08/05/18 12:21) ANGIOEDEMA Home Medications: Home Meds Medication Instructions Recorded Confirmed Paroxetine HCl 20 mg PO HS 07/28/15 08/05/18 Raloxifene [Evista] 60 mg PO DAILY 07/28/15 08/05/18 Omeprazole Magnesium [Prilosec] 20 tab PO DAILY 08/10/17 08/05/18 Review of Systems - Review of Systems Constitutional: Normal Eyes: Normal ENT: Normal Respiratory: Normal Cardiovascular: Normal Gastrointestinal: Normal Genitourinary Female: Normal Musculoskeletal: Other (both lower legs mild swelling) Skin: Normal Neurological: Normal Endocrine: Normal Hemo/Lymphatic: Normal Psychiatric: Normal Physical Exam Vital Signs Reviewed: Yes Appearance: Positive for: Well-Appearing, Non-Toxic, Comfortable Pain Distress: None Mental Status: Positive for: Alert and Oriented X 3 - Systems Exam Head: Present: Atraumatic, Normocephalic Pupils: Present: PERRL Extroacular Muscles: Present: EOMI Conjunctiva: Present: Normal Ears: Present: Normal Mouth: Present: Moist Mucous Membranes Pharnyx: Present: Normal Nose (External): Present: Atraumatic Nose (Internal): Present: Normal Inspection Neck: Present: Normal Range of Motion Respiratory/Chest: Present: Clear to Auscultation, Good Air Exchange Cardiovascular: Present: Regular Rate and Rhythm Abdomen: No: Tenderness, Distention, Normal Bowel Sounds, Peritoneal Signs, Rebound, Guarding, McBurney's Point Tender, Rovsing's Sign Present, Hernias, Feeding Tubes, Ostomy Tubes, Mass/Organomegaly, Scars, Other Back: Present: Normal Inspection Upper Extremity: Present: Normal Inspection Lower Extremity: Present: Edema, Other (b/l le edema pitting but no calf tenderness/erythema/fluctuancec/crepitus and otherwise warm/sensation/cap refill/pink positive. no b/l knee swelling/erythema/fluctuance/crepitus/laxity/tenderness.) Neurological: Present: GCS=15, CN II-XII Intact, Speech Normal, Motor Func Grossly Intact Skin: Present: Warm, Dry, Normal Color Psychiatric: Present: Alert, Oriented x 3, Normal Insight, Normal Concentration Medical Decision Making ED Course and Treatment: d/w Dr. Angulo who stated to admit for ECHO in am and for ortho consult with Dr. Cartagena for b/l knee pain. 08/05/18 12:48 08/05/18 14:00 wbc 12 hb 12 plts 428 08/05/18 14:00 INR 1.14 Trop < 0.01 UA large leukocytes/positive nitrites - ceftriaxone 08/05/2018 14:38 Chest X-ray IMPRESSION: No active disease. Dictator: Peter Martino MD 08/05/18 15:36 Reassessment Condition: Re-examined, Improved - Lab Interpretations I have reviewed the lab results: Yes - RAD Interpretation Radiology Orders: 08/05/18 12:33 CHEST PORTABLE [RAD] Stat Shoe Repairer Helper: ED Physician (cxr mild vascular markings) Disposition/Present on Arrival - Present on Arrival Any Indicators Present on Arrival: No History of DVT/PE: No History of Uncontrolled Diabetes: No Urinary Catheter: No History of Decub. Ulcer: No History Surgical Site Infection Following: None - Disposition Have Diagnosis and Disposition been Completed?: Yes Diagnosis: Pedal edema, UTI (urinary tract infection) Disposition: HOSPITALIZED Disposition Time: 15:37 Patient Plan: Admission Condition: STABLE
[2018-08-05 13:48] LABS: BASO # 0.01 K/mm3 (0.0-2.0); BASO % 0.1 % (0.0-3.0); EOS # 0.1 (0.0-0.7); GRAN # 9.82 (1.4-6.5); GRAN % 82.1 % (50.0-68.0); INR 1.14; LYMPH # 1.2 (1.2-3.4); LYMPH % 9.8 % (22.0-35.0); MEAN CELL VOLUME 82.2 fl (80.0-105.0); MEAN CORPUSCULAR HEMOGLOBIN 25.4 pg (25.0-35.0); MEAN CORPUSCULAR HGB CONC 30.8 g/dl (31.0-37.0); MEAN PLATELET VOLUME 9.3 fl (7.0-11.0); MONO # 0.8 (0.1-0.6); PARTIAL THROMBOPLASTIN TIME 28.4 Seconds (25.1-36.5); RBC 4.73 10^6/uL (3.5-6.1); RED CELL DISTRIBUTION WIDTH 15.8 % (11.5-14.5)
[2018-08-05 13:50] LABS: ALB/GLOB RATIO 1.1 (1.1-1.8); ALBUMIN 4.3 g/dL (3.0-4.8); ALT/SGPT 25 U/L (7-56); AST/SGOT 22 U/L (14-36); BLOOD UREA NITROGEN 18 mg/dL (7-21); CALCIUM 9.3 mg/dL (8.4-10.5); GFR NON-AFRICAN AMERICAN > 60
[2018-08-05 14:02] LABS: B-TYPE NATRIURETIC PEPTIDE 204 pg/mL (0-450); TROPONIN I < 0.01 ng/mL
--- NOTE | 2018-08-05 14:39 | RAD ---
Date of service: 08/05/2018 HISTORY: 78yoF, b/l pedal edema COMPARISON: No prior. FINDINGS: LUNGS: No active pulmonary disease. PLEURA: No significant pleural effusion identified, no pneumothorax apparent. CARDIOVASCULAR: No radiographic findings to suggest acute or significant cardiovascular disease. OSSEOUS STRUCTURES: No significant abnormalities. VISUALIZED UPPER ABDOMEN: Normal. OTHER FINDINGS: None. IMPRESSION: No active disease.
[2018-08-05 15:14] LABS: URINE BILIRUBIN NEGATIVE (NEGATIVE); URINE BLOOD LARGE (NEGATIVE); URINE GLUCOSE (UA) NEGATIVE (NEGATIVE); URINE LEUKOCYTE ESTERASE LARGE Leu/uL (NEGATIVE); URINE PROTEIN >=300 mg/dL (<30 mg/dL); URINE UROBILINOGEN 0.2 E.U./dL (<1 E.U./dL)
[2018-08-05 15:18] LABS: URINE APPEARANCE CLOUDY (CLEAR); URINE COLOR LIGHT YELLOW (YELLOW)
[2018-08-05 15:22] LABS: URINE BACTERIA LARGE (NEG); URINE RBC TNTC /hpf (0-2); URINE WBC TNTC /hpf (0-6)
[2018-08-05] MEDS ORDERED: cefTRIAXone 1 gm 1 GM/100 ML BAG IVPB STA (15:35)
[2018-08-06 07:46] LABS: HEMOGLOBIN 10.8 g/dL (12.0-16.0); MEAN CELL VOLUME 81.5 fl (80.0-105.0); MEAN CORPUSCULAR HEMOGLOBIN 24.7 pg (25.0-35.0); MEAN CORPUSCULAR HGB CONC 30.3 g/dl (31.0-37.0); MEAN PLATELET VOLUME 9.3 fl (7.0-11.0); RBC 4.38 10^6/uL (3.5-6.1); WHITE BLOOD COUNT 11.3 10^3/ul (4.5-11.0)
[2018-08-06 08:16] LABS: ALBUMIN 3.7 g/dL (3.0-4.8); ALT/SGPT 18 U/L (7-56); AST/SGOT 24 U/L (14-36); BLOOD UREA NITROGEN 16 mg/dL (7-21); CALCIUM 8.8 mg/dL (8.4-10.5); GFR NON-AFRICAN AMERICAN > 60
[2018-08-06] MEDS ORDERED: Bupivacaine 0.5% Inj(30mL) IJ ONE (08:52)
[2018-08-06] MEDS ORDERED: MethylPREDNISolone Depo 40 mg/ml Inj IM ONE (08:52)
--- NOTE | 2018-08-06 09:30 | CARD ---
APPROVED REPORT Date of service: 08/05/2018 EKG Measurement Heart [id number] <Conclusion> Normal sinus rhythm Nonspecific T wave abnormality Prolonged QT
--- NOTE | 2018-08-06 11:19 | RAD ---
Date of service: 08/06/2018 PROCEDURE: Radiographs of the pelvis. HISTORY: hip stiffness COMPARISON: None. FINDINGS: BONES: Pelvic Bones: Unremarkable. Hips: There is joint space narrowing bilaterally right greater than left. There is no bony sclerosis or flattening of the femoral head JOINTS: Sacroiliac Joints: Unremarkable. Pubic Symphysis: Unremarkable. OTHER FINDINGS: None. IMPRESSION: Degenerative changes in both hips right greater than left
--- NOTE | 2018-08-06 11:23 | RAD ---
Date of service: 08/06/2018 PROCEDURE: Bilateral knees HISTORY: pain COMPARISON: TECHNIQUE: Two views of each knee FINDINGS: There is joint space narrowing in the medial compartment bilaterally left greater than right. Mild degenerative changes are seen in the patellofemoral joints bilaterally IMPRESSION: Mild degenerative changes
--- NOTE | 2018-08-06 11:54 | HP ---
HISTORY OF PRESENT ILLNESS: The patient is a 78-year-old, who was brought to the emergency room on the insistence of her family because of her disability to get out of bed on her own and increasing bilateral edema of the lower extremities. The patient is known to have osteoarthritis, especially involving the knees. The left knee is known to have torn meniscus as well as partial tear of ligaments. As per the patient, she can walk when she is standing up. However, she cannot get out of bed on her own. Her was recently hospitalized and therefore she needs insurance underwriting assistant in getting out of bed and usually relies on him. PAST MEDICAL HISTORY: Her past medical history is positive for hypertension, status post left mastectomy, osteoarthritis as mentioned above. SOCIAL HISTORY: She is a nonalcoholic drinker. She never smoked. ALLERGIES: SHE IS KNOWN TO BE ALLERGIC TO CODEINE. MEDICATIONS AT THE TIME OF ADMISSION: Included Paxil 20 mg, Evista 60 mg and Prilosec 20 mg. REVIEW OF SYSTEMS: Otherwise unremarkable. PHYSICAL EXAMINATION: VITAL SIGNS: She is afebrile at 98.5 degrees Fahrenheit, blood pressure is 148/78, heart rate is 91 beats per minute. HEENT: Examination of the head, eyes, ears, nose and throat unremarkable. NECK: Supple with no lymphadenopathy. No goiter. LUNGS: Clear to auscultation and percussion. HEART: Regular. No murmurs are appreciated. ABDOMEN: Soft, nontender with no organomegaly. EXTREMITIES: Show +1 pretibial edema bilaterally. NEUROLOGICAL: The patient is awake, alert and oriented with no focal neurological signs. SKIN: Warm and dry with no active lesions. LABORATORY DATA: Laboratory studies show the chest x-ray shows no acute disease. EKG shows regular sinus rhythm with nonspecific ST-T wave changes and prolonged QT intervals. CBC shows a white blood cell count elevated at 12, hemoglobin and hematocrit are 12 and 38.9 respectively, platelet count is 15.8. Serum chemistries are unremarkable. Sodium is 140, potassium 4.4, blood urea nitrogen is 18, creatinine is 0.7, nonfasting glucose is 128. BNP is normal at 204. Troponins are negative at 0.01. Urinalysis is positive for urinary tract infection with large amount of leukocyte esterase, is positive for urinary nitrites, large amount of blood, trace ketones, greater than 300 protein. Red blood cells and white blood cells are too numerous to count and there are large amount of bacteria in her urine. IMPRESSION: The patient is admitted with a urinary tract infection, bilateral pedal edema and generalized weakness. Medications from home are to be continued. We will also treat with antibiotics for the urinary tract infection. The patient to be reevaluated in the morning. Echocardiogram is ordered and the patient is to be evaluated by Dr. Younger, the orthopedist. Vasquez Grady MD
--- NOTE | 2018-08-06 16:08 | CON ---
DATE: 08/06/2018 HISTORY OF PRESENT ILLNESS: She complained of bilateral knee pain. X-rays done several months ago showed right knee varus with medial joint line osteoarthritis, but she hurts more in the left knee today. She does have bilateral stiff hips. She said she has been at [facility] for 5 months in [place] where they have been giving her injections, the last time 3 months ago, combination of cortisone and Hyalgan injections in both knees and she does not know what doctor gave it. So with the lack of full information, I am going to re x-ray her both knees and hips and determine what is the next step to take. I would be reluctant to give her another cortisone shot since she has had several of them at [facility] in [place] along with Hyalgan, but we will see if therapy helps her and go from there and determine if she is a surgical candidate while she is in this facility. FINAL DIAGNOSES: Bilateral knee pain, left worse than the right today and bilateral hip stiffness. Vasquez Younger DO
--- NOTE | 2018-08-07 08:44 | PN ---
DATE: 08/06/2018 DAILY PROGRESS NOTE SUBJECTIVE: The patient is a 78-year-old female who was admitted yesterday because of an inability to get out of bed and increasing bilateral edema of the lower extremities. The patient is known to have a history of osteoarthritis, especially involving the knees. Her cares for the patient 29/05 and he has recently been hospitalized with pulmonary emboli. The patient has no other caregiver available. Her past medical history is positive for hypertension, status post left mastectomy, osteoarthritis. Was seen today. The patient was awake, alert and oriented with no new complaints as per nursing notes. The patient herself was at X-ray Department, getting x-rays of her knees and hips. Review of the chart shows that in 12/2017, she underwent MRI of the right knee and this showed tears of the medial meniscus, also the tears in the lateral meniscus, sprain of the medial collateral ligament, quadriceps tendinopathy and strain of the lateral patellar retinaculum. There was suprapatellar joint effusion and tricompartmental osteophytosis. The picture of the left knee on MRI was similar with tears of the menisci as well as sprain of the proximal attachment of the medial collateral ligament, distal quadriceps tendinopathy, chondromalacia patella with cartilage thinning, suprapatellar joint effusion. The patient was evaluated by Dr. Younger. The case to be discussed with him. Further plans made with Dr. Younger and with family members as well as with the patient. Vasquez Grady MD
--- NOTE | 2018-08-07 23:06 | PN ---
DATE: 08/07/2018 SUBJECTIVE: The patient was seen this Monday in room 562, bed 1 with her sitting at the bedside. He is currently hospitalized in bed 2 with pulmonary embolus. The patient is doing well, although complains of knee pain. Orthopedic followup by Dr. Younger was appreciated. The pedal edema has subsided significantly with diuresis and elevation. I spoke with the patient and her about motivation, ambulation, activities, physical therapy. She was out of subacute rehab facility approximately 6 months ago for an extended period of time after hospitalization. She went home, but with a little success in maintaining the level of therapy. She does not want to return to [facility], but is hoping to be accepted to [facility] for physical therapy and rehab. Case discussed with Director Of Enterprise Strategy and Case Management. We are working on transfer to [facility] perhaps as early as tomorrow. Ray Grady MD
[2018-08-08] MEDS: Tmp-Smz 800 mg-160 mg DS Tab PO SCH ×2 (10:26→17:16)
--- NOTE | 2018-08-08 12:40 | PN ---
DATE: 08/08/2018 DAILY PROGRESS NOTE SUBJECTIVE: The patient is a 78-year-old female with a history of osteoarthritis, especially involving the knees, who requires 24/7 care from her . She was admitted on 08/07/2018 with increasing edema of the lower extremities and inability to get out of bed. During the hospital stay, she was evaluated by Dr. Younger, the orthopedist. In 12/2017, she underwent MRI of the right and left knee, which showed tears of the medial and lateral menisci in both knees. She had ligament strains, tendinopathy and joint effusions in both knees with osteophytosis. Full report is in the hospital records from 12/2017. When seen today, the patient is awake, alert and oriented. She voices no complaints. She has not been out of bed to a chair as of yet. Her urinalysis was positive for E. coli infection, which was sensitive to all antibiotics tested. Therefore, the patient is started on Bactrim DS to be taken 1 tablet twice a day. Her vital signs are stable. We will be requesting Physical Therapy to get the patient out of bed to a chair and to evaluate her ambulatory status. We are attempting to transfer to a subacute care facility, for example [facility] for continued physical therapy. The patient is in a hospital room with her who is also hospitalized for pulmonary emboli. He is her sole caregiver at home as the patient usually requires 24/7 care for getting in and out of bed, up and down from a sofa. Vasquze Grady MD
[2018-08-08 23:23] VITALS: TEMP 99.2; O2SAT 94
[2018-08-09 08:18] VITALS: BP 128/62; PULSE 85; RESP 18
[2018-08-09] MEDS: Tmp-Smz 800 mg-160 mg DS Tab PO SCH (10:02)
== END 2018-08-09 12:24 | disposition home health service (06) | DRG 554 ==
LOC: ED 12:09 → ERH 14:07 → 5RSO 19:47 → OBSVTOIN 08-07 18:16
PROVIDERS: ADMIT Internal Medicine; ATTEND Internal Medicine
DX: M17.0 Bilateral primary osteoarthritis of knee (principal); N39.0 Urinary tract infection, site not specified; S83.207A Unspecified tear of unspecified meniscus, current injury, left knee, initial encounter; S83.411A Sprain of medial collateral ligament of right knee, initial encounter; M22.42 Chondromalacia patellae, left knee; I10 Essential (primary) hypertension; M21.161 Varus deformity, not elsewhere classified, right knee; B96.20 Unspecified Escherichia coli [E. coli] as the cause of diseases classified elsewhere; Z90.12 Acquired absence of left breast and nipple; Z90.49 Acquired absence of other specified parts of digestive tract; Z85.3 Personal history of malignant neoplasm of breast